=== PATIENT | female | born 1940 | race Two or more races ===

== ENCOUNTER → 2019-05-22 | Day surgery (SDC) | payer OTHER ==
[2019-05-20 10:26] LABS: Basophils # (auto) 0.1 uL; Basophils % (auto) 0.7 % (0.0-2.0); Eosinophils # (auto) 0.2 uL; Eosinophils % (auto) 2.7 % (0.0-7.0); Hemoglobin 14.9 g/dL (12.2-16.2); Lymphocytes # (auto) 2.2 uL; Lymphocytes % (auto) 24.8 % (10.0-50.0); Mean Corpuscular Hemoglobin 33.3 pg (28.0-32.0); Mean Corpuscular Hgb Conc. 33.9 g/dL (32.0-36.0); Mean Corpuscular Volume 98.4 fL (80.0-100.0); Monocytes # (auto) 0.6 uL; Monocytes % (auto) 6.6 % (0.0-12.0); Neutrophils # (auto) 5.9 uL; Neutrophils % (auto) 65.2 % (37.0-80.0); Platelet Count (auto) 157 10^3/uL (140-450); Red Blood Cells 4.47 10^6/uL (4.0-5.20); Red Cell Distribution Width 12.5 % (11.8-14.3)
[2019-05-20 10:48] LABS: INR 0.97 (0.9-1.15); Partial Thromboplastin Time 26.2 sec (23.64-32.05)
[2019-05-20 10:51] LABS: Calcium 9.8 mg/dL (8.5-10.1); Potassium 5.3 mmol/L (3.5-5.1)
[2019-05-20 10:55] LABS: BUN/Creatinine Ratio 22.2
[~2019-05-22] VITALS: Ht 167.6 cm; Wt 120.2 kg
[~2019-05-22] MED LIST: ALCA0.25 EACHEYE; AMOX500T86 PO; ASPI-404 PO; ATEN50TA PO; ATOR20TA PO; B-CO-15 PO; BUPIVACAINE HCL 50 ML ONE; COEN200C11 PO; CRAN425C2 PO; FLUT1SPR5; FURO20TA3 PO; GABA100C9 PO; GARL200T PO; HYDROmorphone HCL 2 MG/ML VL ONE; LACTCAP35 PO; LIDOCAINE 1% HCL (LOCAL ANESTH.) INJ 20ML MDV ONE; LOSA-69 PO; METHYLENE BLUE 0.5% 5MG/ML 10ml AMP IV ONE; MIDAZOLAM HCL 1MG/1ML-2 ML VIAL IV ONE; MISCTAB85 PO; MULT-902 PO; MULTTAB61 PO; NIAC500T71 PO; NOR10T PO; OMEG120017 PO; ONDANSETRON HCL 4 MG/2 ML VIAL ONE; POTA1TAB61 PO; PROPOFOL 10 MG/ML 20 ML IV ONE; ROCURONIUM 10MG/ML 10ML VIAL IV ONE; SODIUM CHLORIDE LOCK 10 ML ONE; SUCCINYLCHOLINE CHLORIDE 20 MG/ML 10ML VIAL IV ONE; TOBR0.3S EACHEYE; VITA400T4 PO; ceFAZolin 1GM/50ML 100 ML IV ONE; fentaNYL CITRATE 100 MCG/2 ML VL ONE
[2019-05-22 08:29] LABS: BUN/Creatinine Ratio 26.4; Calcium 8.9 mg/dL (8.5-10.1); Potassium 4.4 mmol/L (3.5-5.1)
[2019-05-22 16:44] VITALS: BP 152/66
== END | disposition home or self-care (01) ==
LOC: SUR 07:08
PROVIDERS: ATTEND Surgery
DX: C50.612 Malignant neoplasm of axillary tail of left female breast (principal); I12.9 Hypertensive chronic kidney disease with stage 1 through stage 4 chronic kidney disease, or unspecified chronic kidney disease; N18.3 Chronic kidney disease, stage 3 (moderate); M19.90 Unspecified osteoarthritis, unspecified site; E78.5 Hyperlipidemia, unspecified; G62.9 Polyneuropathy, unspecified; E66.01 Morbid (severe) obesity due to excess calories; J44.9 Chronic obstructive pulmonary disease, unspecified; F32.9 Major depressive disorder, single episode, unspecified; F17.210 Nicotine dependence, cigarettes, uncomplicated; Z80.8 Family history of malignant neoplasm of other organs or systems; Z68.41 Body mass index [BMI] 40.0-44.9, adult; Z98.890 Other specified postprocedural states; Z88.8 Allergy status to other drugs, medicaments and biological substances; Z91.09 Other allergy status, other than to drugs and biological substances; Z17.0 Estrogen receptor positive status [ER+]
CPT/HCPCS: 19301; 36415; 38525; 80048; 85025; 85610; 85730; 88305; 88331; 88342; 93005; J0330; J0690; J1170; J2001; J2250; J2405; J2704; J3010; J3490; J7030; J7050; Q9968; 78195

== ENCOUNTER → 2019-05-22 | Outpatient (CLI) | payer OTHER ==
[~2019-05-22] MED LIST changes: -BUPIVACAINE HCL 50 ML ONE; +HYDROmorphone HCL 2 MG/ML VL IV PRN; -HYDROmorphone HCL 2 MG/ML VL ONE; -LIDOCAINE 1% HCL (LOCAL ANESTH.) INJ 20ML MDV ONE; -METHYLENE BLUE 0.5% 5MG/ML 10ml AMP IV ONE; -MIDAZOLAM HCL 1MG/1ML-2 ML VIAL IV ONE; +MIDAZOLAM HCL 1MG/1ML-2 ML VIAL ONE; +NALOXONE HCL 0.4 MG/ML VIAL IV PRN; +ONDANSETRON HCL 4 MG/2 ML VIAL IV PRN; -ONDANSETRON HCL 4 MG/2 ML VIAL ONE; -PROPOFOL 10 MG/ML 20 ML IV ONE; -ROCURONIUM 10MG/ML 10ML VIAL IV ONE; -SODIUM CHLORIDE LOCK 10 ML ONE; -SUCCINYLCHOLINE CHLORIDE 20 MG/ML 10ML VIAL IV ONE; -ceFAZolin 1GM/50ML 100 ML IV ONE; -fentaNYL CITRATE 100 MCG/2 ML VL ONE; +hydrALAZINE HCL 20 MG/ML VL IV PRN
== END | disposition home or self-care (01) ==
LOC: XY 11:55
DX: Z12.31 Encounter for screening mammogram for malignant neoplasm of breast (principal); I10 Essential (primary) hypertension; E78.5 Hyperlipidemia, unspecified; F17.210 Nicotine dependence, cigarettes, uncomplicated; Z90.710 Acquired absence of both cervix and uterus
CPT/HCPCS: 78195; A9541; J2250

== ENCOUNTER 2022-02-28 12:36 | Inpatient (IN) | payer OTHER ==
[~2022-02-28] VITALS: Ht 162.6 cm; Wt 108.1 kg
[~2022-02-28 12:36] MED LIST changes: -ASPI-404 PO; +ASPI-543 PO; -HYDROmorphone HCL 2 MG/ML VL IV PRN; -MIDAZOLAM HCL 1MG/1ML-2 ML VIAL ONE; +MULT-1018 PO; -MULTTAB61 PO; -NALOXONE HCL 0.4 MG/ML VIAL IV PRN; -ONDANSETRON HCL 4 MG/2 ML VIAL IV PRN; -hydrALAZINE HCL 20 MG/ML VL IV PRN
[2022-02-28] MEDS ORDERED: SODIUM CHLORIDE 0.9% 1,000 ML IV ONE (13:15)
[2022-02-28 14:12] LABS: Basophils # (auto) 0.1 10 ^3/uL (0-0.2); Basophils % (auto) 0.6 % (0.0-2.0); Eosinophils # (auto) 0 10 ^3/uL (0-0.8); Eosinophils % (auto) 0.2 % (0.0-7.0); Hematocrit 36.4 % (36.0-46.0); Hemoglobin 11.9 g/dL (12.2-16.2); Lymphocytes # (auto) 0.9 10 ^3/uL (0.4-5.4); Lymphocytes % (auto) 8.9 % (10.0-50.0); Mean Corpuscular Hemoglobin 31.6 pg (28.0-32.0); Mean Corpuscular Hgb Conc. 32.5 g/dL (32.0-36.0); Monocytes # (auto) 0.7 10 ^3/uL (0-1.3); Neutrophils # (auto) 8.7 10 ^3/uL (1.6-8.6); Neutrophils % (auto) 83.3 % (37.0-80.0); Red Blood Cells 3.76 10^6/uL (4.0-5.20); Red Cell Distribution Width 13.4 % (11.8-14.3); White Blood Cell 10.5 10^3/uL (4.4-10.8)
[2022-02-28 14:28] LABS: Albumin 3.4 g/dL (3.4-5.0); Anion Gap 7 (5-15); Blood Alcohol < 3.0 mg/dL (0-5); Blood Urea Nitrogen 53 mg/dL (7-18); Calcium 9.4 mg/dL (8.5-10.1); Carbon Dioxide 22 mmol/L (21-32); Chloride 114 mmol/L (98-107); Glucose 120 mg/dL (74-106); Potassium 4.8 mmol/L (3.5-5.1); Sodium 143 mmol/L (136-145)
[2022-02-28 14:32] LABS: Alanine Aminotransferase 21 U/L (13-56); Alkaline Phosphatase 77 U/L (45-117); Aspartate Aminotransferase 21 U/L (15-37); BUN/Creatinine Ratio 24.1; Bilirubin, Total 1.3 mg/dL (0.2-1.0); GFR African American 28 mL/min; GFR Non-African American 23 mL/min; Total Protein 6.5 g/dL (6.4-8.2)
[2022-02-28 16:19] LABS: Alcohol, Urine < 3.0 mg/dL (0-10); Amphetamine Screen, Urine NEGATIVE (NEGATIVE); Barbiturate Scree,Urine NEGATIVE (NEGATIVE); Benzodiazephine Screen, Urine NEGATIVE (NEGATIVE); Cannabinoid Screen, Urine NEGATIVE (NEGATIVE); Cocaine Screen, Urine NEGATIVE (NEGATIVE); Opiate Scree,Urine POSITIVE (NEGATIVE); Phencyclidine Screen, Urine NEGATIVE (NEGATIVE)
[2022-02-28 16:21] LABS: Urine Bacteria MOD /hpf (None Seen); Urine Blood Negative /uL (Negative); Urine Hyaline Cast FEW /lpf (0 - 2); Urine Specific Gravity 1.015 (1.001-1.035); Urine WBC 68 /hpf (0 - 5); Urine WBC Clumps PRESENT /hpf (None Seen)
[2022-02-28] MEDS ORDERED: cefTRIAXone 1GM/50ML D5W 50 ML IV ONE (17:15)
[2022-02-28] MEDS ORDERED: ONDANSETRON HCL 4 MG/2 ML VIAL IV PRN (19:00)
[2022-02-28] MEDS ORDERED: DOCUSATE SOD 100 MG CAP PO PRN (19:00)
[2022-02-28] MEDS ORDERED: ACETAMINOPHEN 325 MG TAB PO PRN (19:00)
[2022-02-28] MEDS ORDERED: MORPHINE SULFATE INJ 2 MG/ml SYRG IV PRN (19:00)
[2022-02-28] MEDS ORDERED: HYDROcodone-ACET 5/325MG TAB PO PRN (19:00)
[2022-02-28] MEDS ORDERED: FUROSEMIDE 100 MG/10ML VIAL IV ONE (19:30)
[2022-02-28] MEDS: SODIUM CHLORIDE 0.9% 1,000 ML IV SCH (20:41)
[2022-03-01] VITALS (7 sets, daily range): BP systolic 107–149; BP diastolic 40–54
[2022-03-01 05:47] LABS: Alanine Aminotransferase 15 U/L (13-56); Albumin 2.6 g/dL (3.4-5.0); Anion Gap 8 (5-15); Blood Urea Nitrogen 45 mg/dL (7-18); Calcium 8.5 mg/dL (8.5-10.1); Carbon Dioxide 21 mmol/L (21-32); Chloride 117 mmol/L (98-107); GFR African American 37 mL/min; GFR Non-African American 30 mL/min; Glucose 98 mg/dL (74-106); Potassium 4.6 mmol/L (3.5-5.1); Sodium 146 mmol/L (136-145)
[2022-03-01 05:50] LABS: Alkaline Phosphatase 59 U/L (45-117); Aspartate Aminotransferase 23 U/L (15-37); Bilirubin, Total 1.1 mg/dL (0.2-1.0); Total Protein 5.4 g/dL (6.4-8.2)
[2022-03-01 06:00] LABS: Basophils # (auto) 0 10 ^3/uL (0-0.2); Basophils % (auto) 0.5 % (0.0-2.0); Eosinophils # (auto) 0.2 10 ^3/uL (0-0.8); Eosinophils % (auto) 2.4 % (0.0-7.0); Hematocrit 35.6 % (36.0-46.0); Lymphocytes # (auto) 2.3 10 ^3/uL (0.4-5.4); Lymphocytes % (auto) 26.3 % (10.0-50.0); Mean Corpuscular Hemoglobin 31.7 pg (28.0-32.0); Mean Corpuscular Hgb Conc. 30.7 g/dL (32.0-36.0); Mean Corpuscular Volume 103.2 fL (80.0-100.0); Monocytes % (auto) 11.6 % (0.0-12.0); Neutrophils # (auto) 5.3 10 ^3/uL (1.6-8.6); Neutrophils % (auto) 59.2 % (37.0-80.0); Red Blood Cells 3.45 10^6/uL (4.0-5.20); Red Cell Distribution Width 14.4 % (11.8-14.3); White Blood Cell 8.9 10^3/uL (4.4-10.8)
[2022-03-01] MEDS: ENOXAPARIN SOD 30 MG/0.3 ML SYRINGE SC SCH (10:50)
[2022-03-01] MEDS: SODIUM CHLORIDE 0.9% 1,000 ML IV SCH (16:24)
[2022-03-02] MEDS: SODIUM CHLORIDE 0.9% 1,000 ML IV SCH ×2 (04:20→21:00)
[2022-03-02 05:00] VITALS: BP 140/62
[2022-03-02 06:16] LABS: Basophils # (auto) 0 10 ^3/uL (0-0.2); Basophils % (auto) 0.6 % (0.0-2.0); Eosinophils # (auto) 0.3 10 ^3/uL (0-0.8); Eosinophils % (auto) 3.9 % (0.0-7.0); Hematocrit 30.9 % (36.0-46.0); Hemoglobin 10.2 g/dL (12.2-16.2); Lymphocytes # (auto) 1.5 10 ^3/uL (0.4-5.4); Lymphocytes % (auto) 20.7 % (10.0-50.0); Mean Corpuscular Hemoglobin 32.6 pg (28.0-32.0); Mean Corpuscular Hgb Conc. 33.1 g/dL (32.0-36.0); Mean Corpuscular Volume 98.6 fL (80.0-100.0); Monocytes # (auto) 0.6 10 ^3/uL (0-1.3); Neutrophils # (auto) 4.6 10 ^3/uL (1.6-8.6); Neutrophils % (auto) 65.8 % (37.0-80.0); Red Blood Cells 3.13 10^6/uL (4.0-5.20); Red Cell Distribution Width 13.5 % (11.8-14.3)
[2022-03-02 06:33] LABS: Anion Gap 6 (5-15); BUN/Creatinine Ratio 23.8; Blood Urea Nitrogen 29 mg/dL (7-18); Calcium 8.4 mg/dL (8.5-10.1); Carbon Dioxide 20 mmol/L (21-32); Chloride 119 mmol/L (98-107); GFR African American 55 mL/min; GFR Non-African American 45 mL/min; Glucose 88 mg/dL (74-106); Magnesium 2.2 mg/dL (1.6-2.6); Potassium 4.1 mmol/L (3.5-5.1); Sodium 145 mmol/L (136-145)
[2022-03-02 09:00] VITALS: BP 154/71
[2022-03-02] MEDS: ENOXAPARIN SOD 30 MG/0.3 ML SYRINGE SC SCH (10:00)
[2022-03-02] MEDS ORDERED: CEFTRIAXONE SODIUM 2 GM in D5W 5% 50 ML IV ONE (11:00)
[2022-03-02 13:00] VITALS: BP 155/62
[2022-03-02 17:00] VITALS: BP 162/56
[2022-03-02 20:20] VITALS: BP 155/72
[2022-03-02 22:00] VITALS: BP 155/72
[2022-03-03 05:00] VITALS: BP 153/53
[2022-03-03 08:00] VITALS: BP 155/71
[2022-03-03 09:00] VITALS: BP 155/71
[2022-03-03] MEDS ORDERED: cefTRIAXone 1GM/50ML D5W 50 ML IV SCH (09:00)
[2022-03-03] MEDS: ENOXAPARIN SOD 30 MG/0.3 ML SYRINGE SC SCH (09:22)
[2022-03-03 09:31] LABS: Basophils # (auto) 0 10 ^3/uL (0-0.2); Basophils % (auto) 0.6 % (0.0-2.0); Eosinophils # (auto) 0.2 10 ^3/uL (0-0.8); Eosinophils % (auto) 3.3 % (0.0-7.0); Hematocrit 34.1 % (36.0-46.0); Lymphocytes # (auto) 1.1 10 ^3/uL (0.4-5.4); Lymphocytes % (auto) 17.2 % (10.0-50.0); Mean Corpuscular Hemoglobin 31.2 pg (28.0-32.0); Mean Corpuscular Hgb Conc. 32.1 g/dL (32.0-36.0); Monocytes # (auto) 0.5 10 ^3/uL (0-1.3); Monocytes % (auto) 7.3 % (0.0-12.0); Neutrophils # (auto) 4.7 10 ^3/uL (1.6-8.6); Neutrophils % (auto) 71.6 % (37.0-80.0); Red Blood Cells 3.52 10^6/uL (4.0-5.20); Red Cell Distribution Width 13.2 % (11.8-14.3); White Blood Cell 6.5 10^3/uL (4.4-10.8)
[2022-03-03 09:41] LABS: Albumin 2.6 g/dL (3.4-5.0); Calcium 8.6 mg/dL (8.5-10.1); Potassium 4.2 mmol/L (3.5-5.1)
[2022-03-03 09:44] LABS: BUN/Creatinine Ratio 15.6; Bilirubin, Total 0.8 mg/dL (0.2-1.0); Total Protein 5.4 g/dL (6.4-8.2)
[2022-03-03] MEDS ORDERED: FUROSEMIDE 40 MG/4 ML VIAL IV ONE (11:00)
[2022-03-03 13:00] VITALS: BP_SYST 123; BP_SYST 134; BP_DIAS 40; BP_DIAS 53
[2022-03-03] MEDS: SODIUM CHLORIDE 0.9% 1,000 ML IV SCH (13:16)
[2022-03-03] MEDS ORDERED: CEPH-510 PO (13:22)
[2022-03-03 14:23] VITALS: BP 134/53
[2022-03-03 16:56] VITALS: BP 141/62
== END 2022-03-03 16:56 | disposition home health service (06) | DRG 871 ==
LOC: ER 12:36 → EDBD 12:36 → OVERFLOW 18:57 → EAST 23:45
PROVIDERS: ADMIT Internal Medicine; ATTEND Internal Medicine
DX: A41.9 Sepsis, unspecified organism (principal); G93.41 Metabolic encephalopathy; N17.0 Acute kidney failure with tubular necrosis; N39.0 Urinary tract infection, site not specified; R55 Syncope and collapse; I12.9 Hypertensive chronic kidney disease with stage 1 through stage 4 chronic kidney disease, or unspecified chronic kidney disease; Z20.822 Contact with and (suspected) exposure to COVID-19; N18.9 Chronic kidney disease, unspecified; Z88.8 Allergy status to other drugs, medicaments and biological substances; Z79.899 Other long term (current) drug therapy
CPT/HCPCS: 36415; 51702; 70450; 70551; 71045; 80048; 80053; 80307; 80320; 81001; 83605; 83735; 83880; 84484; 85025; 87040; 87081; 87086; 93005; 96361; 96365; 97110; 97116; 97163; 97530; G0378; J0696; J2405; J7060

== ENCOUNTER 2022-11-20 18:31 | Inpatient (IN) | payer OTHER ==
[~2022-11-20] VITALS: Ht 167.6 cm; Wt 103.9 kg
[~2022-11-20 18:31] MED LIST changes: -ALCA0.25 EACHEYE; -ASPI-543 PO; -B-CO-15 PO; +B-COTAB19 PO; +CEPH-510 PO; +GABA-1308 PO; -GABA100C9 PO; -LACTCAP35 PO; -LOSA-69 PO; +LOSA50TA46 PO; -MULT-1018 PO; +[UNRECOGNIZED DRUG - CODE] EACHEYE
[2022-11-20 20:32] LABS: Hematocrit 39.9 % (36.0-46.0); Hemoglobin 13.2 g/dL (12.2-16.2); Mean Corpuscular Hemoglobin 31.9 pg (28.0-32.0); Mean Corpuscular Hgb Conc. 33.1 g/dL (32.0-36.0); Mean Corpuscular Volume 96.3 fL (80.0-100.0); Red Blood Cells 4.14 10^6/uL (4.0-5.20); Red Cell Distribution Width 12.7 % (11.8-14.3)
[2022-11-20 20:35] LABS: Basophils % (manual) 0 (0.0-2.0); Blast Cells 0; Eosinophils % (manual) 0 (0-7); Metamyelocytes % 0; Myelocytes % 0; Promyelocytes % 0; Reactive Lymphocytes 0
[2022-11-20 20:55] LABS: Band Neutrophils % (manual) 1; Lymphocytes % (manual) 10 (10.0-50.0); Monocytes % (manual) 8 (0-12)
[2022-11-20 21:09] LABS: Lactic Acid w/Reflex 2.4 mmol/L (0.4-2.0)
[2022-11-20 21:44] LABS: Calcium 9.5 mg/dL (8.5-10.1); Potassium 4.5 mmol/L (3.5-5.1)
[2022-11-20 21:47] LABS: BUN/Creatinine Ratio 28.4 (10.0-20.0); Bilirubin, Total 1.5 mg/dL (0.2-1.0)
[2022-11-20 22:13] LABS: Urine Amorphous Crystal FEW /hpf (None Seen); Urine Bacteria NONE SEEN /hpf (None Seen); Urine Blood 1+ /uL (Negative); Urine Mucus FEW (None Seen); Urine Specific Gravity 1.015 (1.001-1.035); Urine WBC 16 /hpf (0 - 5)
[2022-11-20 22:31] LABS: Alcohol, Urine < 3.0 mg/dL (0-10); Amphetamine Screen, Urine NEGATIVE (NEGATIVE); Barbiturate Scree,Urine NEGATIVE (NEGATIVE); Benzodiazephine Screen, Urine NEGATIVE (NEGATIVE); Cannabinoid Screen, Urine NEGATIVE (NEGATIVE); Cocaine Screen, Urine NEGATIVE (NEGATIVE); Opiate Scree,Urine POSITIVE (NEGATIVE); Phencyclidine Screen, Urine NEGATIVE (NEGATIVE)
[2022-11-21] VITALS: BP 122/78
[2022-11-21] MEDS ORDERED: cefTRIAXone 1GM/50ML D5W 50 ML IV ONE (04:00)
[2022-11-21] MEDS ORDERED: ACETAMINOPHEN 325 MG TAB PO PRN (07:15)
[2022-11-21] MEDS ORDERED: ONDANSETRON HCL 4 MG/2 ML VIAL IV PRN (07:15)
[2022-11-21] MEDS ORDERED: LOSARTAN POTASSIUM 50 MG TAB PO SCH (10:00)
[2022-11-21] MEDS: PANTOPRAZOLE 40 MG TAB PO SCH (10:52)
[2022-11-21] MEDS: ATENOLOL 50 MG TAB PO SCH (10:52)
[2022-11-21] MEDS: ASPirin 81 mg TAB PO SCH (10:53)
[2022-11-21] MEDS: cefTRIAXone 1GM/50ML D5W 50 ML IV SCH (10:55)
[2022-11-21] MEDS: FUROSEMIDE 20 MG TAB PO SCH (10:55)
[2022-11-21] MEDS: SOD CHL 0.45% 1,000 ML IV SCH (14:55)
[2022-11-21] MEDS: ATORVASTATIN 20 MG TAB PO SCH (22:31)
[2022-11-22] MEDS: SOD CHL 0.45% 1,000 ML IV SCH (01:35)
[2022-11-22 05:00] VITALS: BP 132/55
[2022-11-22 06:55] LABS: Basophils # (auto) 0.1 10 ^3/uL (0-0.2); Basophils % (auto) 0.6 % (0.0-2.0); Eosinophils # (auto) 0.3 10 ^3/uL (0-0.8); Eosinophils % (auto) 3.1 % (0.0-7.0); Hematocrit 33.2 % (36.0-46.0); Hemoglobin 11.3 g/dL (12.2-16.2); Lymphocytes # (auto) 1.7 10 ^3/uL (0.4-5.4); Lymphocytes % (auto) 17.8 % (10.0-50.0); Mean Corpuscular Hemoglobin 32.9 pg (28.0-32.0); Mean Corpuscular Hgb Conc. 34.2 g/dL (32.0-36.0); Mean Corpuscular Volume 96.3 fL (80.0-100.0); Monocytes % (auto) 11.2 % (0.0-12.0); Neutrophils # (auto) 6.3 10 ^3/uL (1.6-8.6); Neutrophils % (auto) 67.3 % (37.0-80.0); Nucleated Red Blood Cells % 0.1 %; Red Blood Cells 3.45 10^6/uL (4.0-5.20); Red Cell Distribution Width 12.4 % (11.8-14.3); White Blood Cell 9.3 10^3/uL (4.4-10.8)
[2022-11-22 07:12] LABS: Albumin 2.5 g/dL (3.4-5.0); Calcium 8.9 mg/dL (8.5-10.1)
[2022-11-22 07:14] LABS: BUN/Creatinine Ratio 30.8 (10.0-20.0)
[2022-11-22 07:16] LABS: Total Protein 5.3 g/dL (6.4-8.2)
[2022-11-22] MEDS: cefTRIAXone 1GM/50ML D5W 50 ML IV SCH (08:10)
[2022-11-22 09:00] VITALS: BP 115/30
[2022-11-22] MEDS: ASPirin 81 mg TAB PO SCH (11:11)
[2022-11-22] MEDS: PANTOPRAZOLE 40 MG TAB PO SCH (11:11)
[2022-11-22] MEDS: ATENOLOL 50 MG TAB PO SCH (11:12)
[2022-11-22] MEDS: FUROSEMIDE 20 MG TAB PO SCH (11:13)
[2022-11-22 12:45] VITALS: BP 138/57
[2022-11-22] MEDS ORDERED: SOD CHL 0.45% 1,000 ML IV SCH (13:30)
[2022-11-22 17:00] VITALS: BP 150/76
[2022-11-22 22:00] VITALS: BP 124/51
[2022-11-22] MEDS: ATORVASTATIN 20 MG TAB PO SCH (23:51)
[2022-11-22] MEDS: SODIUM BICARBONATE 50ML VIAL 50 ML in SOD CHL 0.45% 1,000 ML IV SCH (23:52)
[2022-11-23 05:00] VITALS: BP 150/60
[2022-11-23 05:52] LABS: BUN/Creatinine Ratio 28.2 (10.0-20.0); Calcium 8.5 mg/dL (8.5-10.1); Potassium 3.6 mmol/L (3.5-5.1)
[2022-11-23 09:00] VITALS: BP 135/53
[2022-11-23] MEDS: cefTRIAXone 1GM/50ML D5W 50 ML IV SCH (09:43)
[2022-11-23] MEDS: ASPirin 81 mg TAB PO SCH (09:43)
[2022-11-23] MEDS: PANTOPRAZOLE 40 MG TAB PO SCH (09:44)
[2022-11-23] MEDS: SODIUM BICARBONATE 50ML VIAL 50 ML in SOD CHL 0.45% 1,000 ML IV SCH (09:48)
[2022-11-23] MEDS: FUROSEMIDE 20 MG TAB PO SCH (10:01)
[2022-11-23] MEDS: ATENOLOL 50 MG TAB PO SCH (10:01)
[2022-11-23] MEDS ORDERED: CIPR-173 PO (12:43)
[2022-11-23 12:46] VITALS: BP 131/53
== END 2022-11-23 16:30 | disposition home or self-care (01) | DRG 690 ==
LOC: EDBD 18:31 → ER 18:35 → OVERFLOW 11-21 07:16 → WEST WING 11-21 23:17
PROVIDERS: ADMIT Nurse Practitioner; ATTEND Hospitalist
DX: N39.0 Urinary tract infection, site not specified (principal); E44.0 Moderate protein-calorie malnutrition; E87.20 Acidosis, unspecified; N17.9 Acute kidney failure, unspecified; E66.01 Morbid (severe) obesity due to excess calories; I12.9 Hypertensive chronic kidney disease with stage 1 through stage 4 chronic kidney disease, or unspecified chronic kidney disease; D63.1 Anemia in chronic kidney disease; N18.30 Chronic kidney disease, stage 3 unspecified; N20.0 Calculus of kidney; E78.5 Hyperlipidemia, unspecified; Z68.37 Body mass index [BMI] 37.0-37.9, adult; Z88.8 Allergy status to other drugs, medicaments and biological substances; R55 Syncope and collapse
CPT/HCPCS: 36415; 70450; 71045; 71250; 72125; 73100; 74176; 76775; 78582; 80048; 80053; 80307; 81001; 83605; 83880; 83970; 84100; 84484; 85007; 85025; 85027; 85379; 87086; 87088; 87186; 87493; 93005; 93306; 93970; 96365; 97110; 97116; 97163; 97530; G0378; J0696

== ENCOUNTER 2022-12-14 01:44 | Inpatient (IN) | payer OTHER ==
[~2022-12-14] VITALS: Ht 162.6 cm; Wt 97.0 kg
[~2022-12-14 01:44] MED LIST changes: -AMOX500T86 PO; -CEPH-510 PO; +CIPR-173 PO; -COEN200C11 PO; -CRAN425C2 PO; -GARL200T PO; -NIAC500T71 PO; -VITA400T4 PO
[2022-12-14 02:56] LABS: Basophils # (auto) 0 10 ^3/uL (0-0.2); Basophils % (auto) 0.6 % (0.0-2.0); Eosinophils # (auto) 0.1 10 ^3/uL (0-0.8); Hematocrit 32.6 % (36.0-46.0); Hemoglobin 10.7 g/dL (12.2-16.2); Lymphocytes # (auto) 1.2 10 ^3/uL (0.4-5.4); Lymphocytes % (auto) 15.1 % (10.0-50.0); Mean Corpuscular Hemoglobin 32.4 pg (28.0-32.0); Mean Corpuscular Hgb Conc. 32.8 g/dL (32.0-36.0); Mean Corpuscular Volume 98.8 fL (80.0-100.0); Monocytes # (auto) 0.6 10 ^3/uL (0-1.3); Monocytes % (auto) 7.3 % (0.0-12.0); Neutrophils # (auto) 6.2 10 ^3/uL (1.6-8.6); Nucleated Red Blood Cells % 0.1 %; Red Cell Distribution Width 13.4 % (11.8-14.3); White Blood Cell 8.2 10^3/uL (4.4-10.8)
[2022-12-14 03:03] LABS: Albumin 2.7 g/dL (3.4-5.0); Calcium 8.8 mg/dL (8.5-10.1)
[2022-12-14 03:06] LABS: BUN/Creatinine Ratio 18.1 (10.0-20.0); Bilirubin, Total 0.6 mg/dL (0.2-1.0); Total Protein 6.2 g/dL (6.4-8.2)
[2022-12-14 03:30] LABS: INR 1.03 (0.9-1.15); Partial Thromboplastin Time 27.7 sec (24.6-33.4)
[2022-12-14] MEDS ORDERED: FUROSEMIDE 20 MG/2 ML VIAL IV ONE (05:45)
[2022-12-14] MEDS ORDERED: DOCUSATE SOD 100 MG CAP PO PRN (05:45)
[2022-12-14] MEDS ORDERED: MORPHINE SULFATE INJ 2 MG/ml SYRG IV PRN (05:45)
[2022-12-14] MEDS ORDERED: NITROGLYCERIN 0.4 MG SL TAB SL PRN (05:45)
[2022-12-14] MEDS ORDERED: ACETAMINOPHEN 325 MG TAB PO PRN (05:45)
[2022-12-14] MEDS: SODIUM CHLOR 0.9% PF (SALINE LOCK) 10ML VIAL/SYR IV SCH ×3 (06:33→22:11)
[2022-12-14 07:20] LABS: Basophils # (auto) 0.1 10 ^3/uL (0-0.2); Basophils % (auto) 1.1 % (0.0-2.0); Eosinophils # (auto) 0.1 10 ^3/uL (0-0.8); Eosinophils % (auto) 1.6 % (0.0-7.0); Hematocrit 32.2 % (36.0-46.0); Hemoglobin 10.5 g/dL (12.2-16.2); Lymphocytes # (auto) 1.6 10 ^3/uL (0.4-5.4); Lymphocytes % (auto) 20.4 % (10.0-50.0); Mean Corpuscular Hemoglobin 32.7 pg (28.0-32.0); Mean Corpuscular Hgb Conc. 32.6 g/dL (32.0-36.0); Mean Corpuscular Volume 100.2 fL (80.0-100.0); Monocytes # (auto) 0.7 10 ^3/uL (0-1.3); Monocytes % (auto) 9.4 % (0.0-12.0); Neutrophils # (auto) 5.2 10 ^3/uL (1.6-8.6); Neutrophils % (auto) 67.5 % (37.0-80.0); Red Blood Cells 3.21 10^6/uL (4.0-5.20); Red Cell Distribution Width 13.8 % (11.8-14.3); White Blood Cell 7.7 10^3/uL (4.4-10.8)
[2022-12-14 07:27] LABS: Albumin 2.4 g/dL (3.4-5.0); BUN/Creatinine Ratio 19.5 (10.0-20.0); Calcium 8.6 mg/dL (8.5-10.1); Potassium 5.4 mmol/L (3.5-5.1)
[2022-12-14 07:30] LABS: Bilirubin, Total 0.6 mg/dL (0.2-1.0); Total Protein 5.9 g/dL (6.4-8.2)
[2022-12-14] MEDS: SOD CHL 0.45% 1,000 ML IV SCH (09:20)
[2022-12-14] MEDS: FUROSEMIDE 20 MG/2 ML VIAL IV SCH (10:56)
[2022-12-14 14:32] LABS: Urine Bacteria FEW /hpf (None Seen); Urine Blood Negative /uL (Negative); Urine Specific Gravity 1.013 (1.001-1.035); Urine WBC <1 /hpf (0 - 5)
[2022-12-14 14:45] LABS: Protein, Urine 21.1 mg/dL (0.0-11.9)
[2022-12-14] MEDS: SODIUM ZIRCONIUM CYCL 10 GM PAK PO SCH (15:02)
[2022-12-14] MEDS: APIXABAN 2.5 MG TAB PO SCH (22:11)
[2022-12-15] VITALS (7 sets, daily range): BP systolic 105–146; BP diastolic 40–67
[2022-12-15] MEDS: SOD CHL 0.45% 1,000 ML IV SCH ×3 (00:17→13:27)
[2022-12-15 05:42] LABS: Albumin 2.5 g/dL (3.4-5.0); Calcium 8.1 mg/dL (8.5-10.1); Potassium 4.2 mmol/L (3.5-5.1)
[2022-12-15 05:45] LABS: BUN/Creatinine Ratio 18.8 (10.0-20.0); Bilirubin, Total 0.6 mg/dL (0.2-1.0); Phosphorus 3.3 mg/dL (2.5-4.90); Total Protein 5.6 g/dL (6.4-8.2)
[2022-12-15 06:10] LABS: Basophils # (auto) 0 10 ^3/uL (0-0.2); Basophils % (auto) 0.4 % (0.0-2.0); Eosinophils # (auto) 0.2 10 ^3/uL (0-0.8); Eosinophils % (auto) 2.8 % (0.0-7.0); Hemoglobin 10.4 g/dL (12.2-16.2); Lymphocytes # (auto) 1.7 10 ^3/uL (0.4-5.4); Lymphocytes % (auto) 22.6 % (10.0-50.0); Mean Corpuscular Hemoglobin 32.8 pg (28.0-32.0); Mean Corpuscular Hgb Conc. 33.4 g/dL (32.0-36.0); Mean Corpuscular Volume 98.3 fL (80.0-100.0); Monocytes # (auto) 0.6 10 ^3/uL (0-1.3); Monocytes % (auto) 8.6 % (0.0-12.0); Neutrophils # (auto) 4.9 10 ^3/uL (1.6-8.6); Neutrophils % (auto) 65.6 % (37.0-80.0); Red Blood Cells 3.16 10^6/uL (4.0-5.20); Red Cell Distribution Width 13.7 % (11.8-14.3); White Blood Cell 7.4 10^3/uL (4.4-10.8)
[2022-12-15] MEDS: SODIUM CHLOR 0.9% PF (SALINE LOCK) 10ML VIAL/SYR IV SCH ×3 (06:26→20:39)
[2022-12-15] MEDS: FUROSEMIDE 20 MG/2 ML VIAL IV SCH (09:19)
[2022-12-15] MEDS: SODIUM ZIRCONIUM CYCL 10 GM PAK PO SCH (09:22)
[2022-12-15] MEDS: APIXABAN 2.5 MG TAB PO SCH ×2 (09:23→20:38)
[2022-12-16] VITALS (7 sets, daily range): BP systolic 120–142; BP diastolic 46–65
[2022-12-16] MEDS: SOD CHL 0.45% 1,000 ML IV SCH ×2 (00:30→11:39)
[2022-12-16] MEDS: HYDROcodone-ACET 5/325MG TAB PO PRN (02:10)
[2022-12-16] MEDS: ONDANSETRON HCL 4 MG/2 ML VIAL IV PRN ×2 (05:13→15:26)
[2022-12-16] MEDS: SODIUM CHLOR 0.9% PF (SALINE LOCK) 10ML VIAL/SYR IV SCH ×3 (05:14→21:17)
[2022-12-16 06:29] LABS: Anion Gap 4 (5-15); BUN/Creatinine Ratio 17.7 (10.0-20.0); Blood Urea Nitrogen 26 mg/dL (7-18); Carbon Dioxide 17 mmol/L (21-32); Chloride 122 mmol/L (98-107); GFR African American 44 mL/min; GFR Non-African American 36 mL/min; Glucose 82 mg/dL (74-106); Potassium 5.2 mmol/L (3.5-5.1); Sodium 143 mmol/L (136-145)
[2022-12-16 07:11] LABS: Basophils # (auto) 0 10 ^3/uL (0-0.2); Basophils % (auto) 0.6 % (0.0-2.0); Eosinophils # (auto) 0.2 10 ^3/uL (0-0.8); Eosinophils % (auto) 2.6 % (0.0-7.0); Hematocrit 28.9 % (36.0-46.0); Hemoglobin 9.7 g/dL (12.2-16.2); Lymphocytes # (auto) 1.7 10 ^3/uL (0.4-5.4); Lymphocytes % (auto) 23.8 % (10.0-50.0); Mean Corpuscular Hemoglobin 33.9 pg (28.0-32.0); Mean Corpuscular Hgb Conc. 33.7 g/dL (32.0-36.0); Mean Corpuscular Volume 100.6 fL (80.0-100.0); Monocytes # (auto) 0.7 10 ^3/uL (0-1.3); Monocytes % (auto) 9.6 % (0.0-12.0); Neutrophils # (auto) 4.4 10 ^3/uL (1.6-8.6); Neutrophils % (auto) 63.4 % (37.0-80.0); Nucleated Red Blood Cells % 0.2 %; Red Blood Cells 2.88 10^6/uL (4.0-5.20)
[2022-12-16] MEDS: FUROSEMIDE 20 MG/2 ML VIAL IV SCH (09:22)
[2022-12-16] MEDS: APIXABAN 2.5 MG TAB PO SCH ×2 (09:23→21:17)
[2022-12-16] MEDS: SODIUM ZIRCONIUM CYCL 10 GM PAK PO SCH (09:23)
[2022-12-17] VITALS (7 sets, daily range): BP systolic 128–156; BP diastolic 53–88
[2022-12-17] MEDS: ONDANSETRON HCL 4 MG/2 ML VIAL IV PRN ×2 (00:23→21:25)
[2022-12-17] MEDS: SODIUM CHLOR 0.9% PF (SALINE LOCK) 10ML VIAL/SYR IV SCH ×3 (06:06→21:25)
[2022-12-17 06:31] LABS: Calcium 7.9 mg/dL (8.5-10.1)
[2022-12-17 06:34] LABS: BUN/Creatinine Ratio 13.9 (10.0-20.0)
[2022-12-17 06:39] LABS: Potassium 4.7 mmol/L (3.5-5.1)
[2022-12-17] MEDS: FUROSEMIDE 20 MG/2 ML VIAL IV SCH (10:05)
[2022-12-17] MEDS: SODIUM ZIRCONIUM CYCL 10 GM PAK PO SCH (10:05)
[2022-12-17] MEDS: APIXABAN 2.5 MG TAB PO SCH ×2 (10:05→21:25)
[2022-12-17] MEDS ORDERED: APIX2.5T PO (13:48)
[2022-12-17] MEDS: hydrALAZINE HCL 20 MG/ML VL IV PRN ×2 (17:56→23:08)
[2022-12-17] MEDS: HYDROcodone-ACET 5/325MG TAB PO PRN (23:01)
[2022-12-18] VITALS (7 sets, daily range): BP systolic 118–166; BP diastolic 49–65
[2022-12-18] MEDS: SODIUM CHLOR 0.9% PF (SALINE LOCK) 10ML VIAL/SYR IV SCH ×3 (06:21→21:15)
[2022-12-18] MEDS: APIXABAN 2.5 MG TAB PO SCH ×2 (08:52→21:16)
[2022-12-18] MEDS: HYDROcodone-ACET 5/325MG TAB PO PRN (08:52)
[2022-12-18] MEDS: FUROSEMIDE 20 MG/2 ML VIAL IV SCH (08:53)
[2022-12-18] MEDS: ONDANSETRON HCL 4 MG/2 ML VIAL IV PRN ×2 (08:53→21:15)
[2022-12-18] MEDS: ATENOLOL 25 MG TAB PO SCH (08:53)
[2022-12-18 15:29] LABS: BUN/Creatinine Ratio 11.6 (10.0-20.0); Calcium 8.5 mg/dL (8.5-10.1); Potassium 5.2 mmol/L (3.5-5.1)
[2022-12-19] VITALS (7 sets, daily range): BP systolic 136–153; BP diastolic 48–75
[2022-12-19] MEDS: HYDROcodone-ACET 5/325MG TAB PO PRN ×2 (00:53→21:06)
[2022-12-19] MEDS: hydrALAZINE HCL 20 MG/ML VL IV PRN (04:18)
[2022-12-19] MEDS: SODIUM CHLOR 0.9% PF (SALINE LOCK) 10ML VIAL/SYR IV SCH ×3 (05:06→21:06)
[2022-12-19 05:52] LABS: Calcium 8.4 mg/dL (8.5-10.1); Potassium 4.1 mmol/L (3.5-5.1)
[2022-12-19 06:26] LABS: BUN/Creatinine Ratio 13.3 (10.0-20.0)
[2022-12-19] MEDS: APIXABAN 2.5 MG TAB PO SCH ×2 (09:37→21:06)
[2022-12-19] MEDS: ATENOLOL 25 MG TAB PO SCH (09:37)
[2022-12-19] MEDS: FUROSEMIDE 20 MG/2 ML VIAL IV SCH (09:38)
[2022-12-19] MEDS: ONDANSETRON HCL 4 MG/2 ML VIAL IV PRN (16:52)
[2022-12-19] MEDS: FUROSEMIDE 20 MG TAB PO SCH (17:53)
[2022-12-20 05:00] VITALS: BP 125/56
[2022-12-20] MEDS: FUROSEMIDE 20 MG TAB PO SCH ×2 (05:25→17:25)
[2022-12-20] MEDS: SODIUM CHLOR 0.9% PF (SALINE LOCK) 10ML VIAL/SYR IV SCH ×3 (05:26→21:23)
[2022-12-20 06:13] LABS: Calcium 8.2 mg/dL (8.5-10.1); Potassium 4.2 mmol/L (3.5-5.1)
[2022-12-20 06:15] LABS: BUN/Creatinine Ratio 13.5 (10.0-20.0)
[2022-12-20 09:00] VITALS: BP 148/58
[2022-12-20] MEDS: APIXABAN 2.5 MG TAB PO SCH ×2 (10:59→21:22)
[2022-12-20 13:00] VITALS: BP 143/46
[2022-12-20 16:52] VITALS: BP 137/45
[2022-12-20] MEDS: Ensure HIGH Protein Chocolate 8oz Bottle PO SCH (18:00)
[2022-12-20] MEDS: HYDROcodone-ACET 5/325MG TAB PO PRN (21:22)
[2022-12-20] MEDS: hydrALAZINE HCL 20 MG/ML VL IV PRN (21:23)
[2022-12-20 21:30] VITALS: BP 168/51
[2022-12-21 05:20] VITALS: BP 130/68
[2022-12-21] MEDS: SODIUM CHLOR 0.9% PF (SALINE LOCK) 10ML VIAL/SYR IV SCH ×3 (05:40→22:06)
[2022-12-21] MEDS: FUROSEMIDE 20 MG TAB PO SCH ×2 (05:40→17:29)
[2022-12-21] MEDS: ATENOLOL 25 MG TAB PO SCH (08:13)
[2022-12-21] MEDS: Ensure HIGH Protein Chocolate 8oz Bottle PO SCH ×3 (08:14→17:55)
[2022-12-21 09:00] VITALS: BP 148/75
[2022-12-21] MEDS: APIXABAN 2.5 MG TAB PO SCH ×2 (09:04→22:01)
[2022-12-21 13:00] VITALS: BP 142/79
[2022-12-21 17:00] VITALS: BP 157/50
[2022-12-21] MEDS: ONDANSETRON HCL 4 MG/2 ML VIAL IV PRN ×2 (17:03→22:06)
[2022-12-21] MEDS: hydrALAZINE HCL 20 MG/ML VL IV PRN (17:29)
[2022-12-21] MEDS: HYDROcodone-ACET 5/325MG TAB PO PRN (22:06)
[2022-12-22 05:00] VITALS: BP 153/54
[2022-12-22] MEDS: SODIUM CHLOR 0.9% PF (SALINE LOCK) 10ML VIAL/SYR IV SCH ×3 (06:00→21:18)
[2022-12-22] MEDS: FUROSEMIDE 20 MG TAB PO SCH ×2 (06:40→18:08)
[2022-12-22] MEDS: ATENOLOL 25 MG TAB PO SCH (08:20)
[2022-12-22] MEDS: Ensure HIGH Protein Chocolate 8oz Bottle PO SCH ×3 (08:21→18:08)
[2022-12-22 09:00] VITALS: BP 146/66
[2022-12-22] MEDS: APIXABAN 2.5 MG TAB PO SCH ×2 (09:47→21:19)
[2022-12-22 13:00] VITALS: BP 141/57
[2022-12-22 17:00] VITALS: BP 159/60
[2022-12-22] MEDS: hydrALAZINE HCL 20 MG/ML VL IV PRN (17:06)
[2022-12-22 20:00] VITALS: BP 144/62
[2022-12-22 22:00] VITALS: BP 122/46
[2022-12-23] MEDS: HYDROcodone-ACET 5/325MG TAB PO PRN ×2 (01:03→23:36)
[2022-12-23 05:00] VITALS: BP 132/55
[2022-12-23] MEDS: SODIUM CHLOR 0.9% PF (SALINE LOCK) 10ML VIAL/SYR IV SCH ×3 (06:00→21:30)
[2022-12-23] MEDS: FUROSEMIDE 20 MG TAB PO SCH ×2 (06:01→18:25)
[2022-12-23 08:10] VITALS: BP 142/61
[2022-12-23] MEDS: Ensure HIGH Protein Chocolate 8oz Bottle PO SCH ×3 (08:24→18:25)
[2022-12-23] MEDS: ATENOLOL 25 MG TAB PO SCH (08:25)
[2022-12-23] MEDS: APIXABAN 2.5 MG TAB PO SCH ×2 (10:23→21:30)
[2022-12-23 12:00] VITALS: BP 119/53
[2022-12-23 16:00] VITALS: BP 136/70
[2022-12-23 20:00] VITALS: BP 119/64
[2022-12-23 22:00] VITALS: BP 135/47
[2022-12-24 05:00] VITALS: BP 144/48
[2022-12-24] MEDS: FUROSEMIDE 20 MG TAB PO SCH ×2 (05:29→18:00)
[2022-12-24] MEDS: SODIUM CHLOR 0.9% PF (SALINE LOCK) 10ML VIAL/SYR IV SCH ×3 (05:29→21:55)
[2022-12-24 08:00] VITALS: BP 127/49
[2022-12-24] MEDS: Ensure HIGH Protein Chocolate 8oz Bottle PO SCH ×3 (08:21→19:45)
[2022-12-24] MEDS: ATENOLOL 25 MG TAB PO SCH (08:24)
[2022-12-24 09:00] VITALS: BP 127/49
[2022-12-24] MEDS: APIXABAN 2.5 MG TAB PO SCH ×2 (10:18→21:52)
[2022-12-24 13:00] VITALS: BP 145/65
[2022-12-24] MEDS: HYDROcodone-ACET 5/325MG TAB PO PRN ×2 (13:07→21:52)
[2022-12-24 17:00] VITALS: BP 139/68
[2022-12-24 22:00] VITALS: BP 132/67
[2022-12-25 05:00] VITALS: BP 136/65
[2022-12-25] MEDS: SODIUM CHLOR 0.9% PF (SALINE LOCK) 10ML VIAL/SYR IV SCH (06:00)
[2022-12-25] MEDS: FUROSEMIDE 20 MG TAB PO SCH (06:08)
== END 2022-12-25 08:15 | DRG 299 ==
LOC: EDBD 01:44 → ER 01:44 → TELE 05:47 → TELE-EAST 12-15 03:17
PROVIDERS: ADMIT Nurse Practitioner Family; ATTEND Hospitalist
DX: I82.431 Acute embolism and thrombosis of right popliteal vein (principal); I26.99 Other pulmonary embolism without acute cor pulmonale; N17.0 Acute kidney failure with tubular necrosis; E87.0 Hyperosmolality and hypernatremia; I13.0 Hypertensive heart and chronic kidney disease with heart failure and stage 1 through stage 4 chronic kidney disease, or unspecified chronic kidney disease; Z20.822 Contact with and (suspected) exposure to COVID-19; I50.9 Heart failure, unspecified; E87.5 Hyperkalemia; N18.32 Chronic kidney disease, stage 3b; Z88.8 Allergy status to other drugs, medicaments and biological substances; Z79.01 Long term (current) use of anticoagulants; Z79.899 Other long term (current) drug therapy; Z82.49 Family history of ischemic heart disease and other diseases of the circulatory system; Z83.3 Family history of diabetes mellitus; Z87.440 Personal history of urinary (tract) infections; Z91.81 History of falling; Z87.891 Personal history of nicotine dependence; G62.9 Polyneuropathy, unspecified; M79.89 Other specified soft tissue disorders
CPT/HCPCS: 36415; 70496; 71045; 76775; 78582; 80048; 80053; 81001; 82306; 82570; 83880; 84100; 84156; 84300; 84443; 84484; 84550; 85025; 85379; 85610; 85730; 87081; 87426; 93005; 93306; 93970; 96374; 97110; 97116; 97163; 97530; G0378; J2405

== ENCOUNTER 2023-01-22 15:32 | Inpatient (IN) | payer OTHER ==
[~2023-01-22] VITALS: Ht 162.6 cm; Wt 91.8 kg
[~2023-01-22 15:32] MED LIST changes: +APIX2.5T PO; -ATEN50TA PO; -B-COTAB19 PO; -CIPR-173 PO; -FLUT1SPR5; -FURO20TA3 PO; -LOSA50TA46 PO; -MISCTAB85 PO; -NOR10T PO; -OMEG120017 PO; -TOBR0.3S EACHEYE
[2023-01-22 16:14] VITALS: PULSE 115; RESP 18; O2SAT 91
[2023-01-22] MEDS ORDERED: VANCOMYCIN 1GM/250ML 250 ML IV ONE ×2 (16:30→20:30)
[2023-01-22] MEDS ORDERED: SODIUM CHLORIDE 0.9% 1,000 ML IV ONE (16:30)
[2023-01-22] MEDS ORDERED: CEFEPIME 1GM/ 50ML 50 ML IV ONE (16:30)
[2023-01-22] MEDS ORDERED: ATEN-60 PO (16:51)
[2023-01-22] MEDS ORDERED: PREG75CA PO (16:51)
[2023-01-22 16:59] LABS: Basophils # (auto) 0.1 10 ^3/uL (0-0.2); Basophils % (auto) 0.7 % (0.0-2.0); Eosinophils # (auto) 0 10 ^3/uL (0-0.8); Eosinophils % (auto) 0.1 % (0.0-7.0); Hematocrit 36.6 % (36.0-46.0); Hemoglobin 11.8 g/dL (12.2-16.2); Lymphocytes # (auto) 1.2 10 ^3/uL (0.4-5.4); Lymphocytes % (auto) 8.9 % (10.0-50.0); Mean Corpuscular Hemoglobin 31.2 pg (28.0-32.0); Mean Corpuscular Hgb Conc. 32.1 g/dL (32.0-36.0); Mean Corpuscular Volume 97.2 fL (80.0-100.0); Monocytes # (auto) 1.3 10 ^3/uL (0-1.3); Monocytes % (auto) 9.7 % (0.0-12.0); Neutrophils # (auto) 10.8 10 ^3/uL (1.6-8.6); Neutrophils % (auto) 80.6 % (37.0-80.0); Red Blood Cells 3.77 10^6/uL (4.0-5.20); Red Cell Distribution Width 13.9 % (11.8-14.3); White Blood Cell 13.4 10^3/uL (4.4-10.8)
[2023-01-22 17:01] LABS: Urine Bacteria FEW /hpf (None Seen); Urine Blood Negative /uL (Negative); Urine Hyaline Cast FEW /lpf (0 - 2); Urine Mucus FEW (None Seen); Urine Specific Gravity 1.017 (1.001-1.035); Urine WBC <1 /hpf (0 - 5)
[2023-01-22 17:19] LABS: Albumin 2.6 g/dL (3.4-5.0); Calcium 9.3 mg/dL (8.5-10.1); Potassium 3.7 mmol/L (3.5-5.1)
[2023-01-22 17:22] LABS: BUN/Creatinine Ratio 34.8 (10.0-20.0); Bilirubin, Total 0.9 mg/dL (0.2-1.0); Total Protein 6.3 g/dL (6.4-8.2)
[2023-01-22] MEDS ORDERED: LACTATED RINGER'S 1,000 ML IV ONE (19:00)
[2023-01-22 19:40] VITALS: PULSE 88; RESP 16; O2SAT 96
[2023-01-22] MEDS ORDERED: NITROGLYCERIN 0.4 MG SL TAB SL PRN (20:00)
[2023-01-22] MEDS ORDERED: MORPHINE SULFATE INJ 2 MG/ml SYRG IV PRN (20:00)
[2023-01-22] MEDS ORDERED: VANCOMYCIN PER PHARMACY 0 MG IV SCH (20:00)
[2023-01-22] MEDS ORDERED: DEXTROSE (50%) 50ML SYRG IV PRN (20:00)
[2023-01-22] MEDS ORDERED: ACETAMINOPHEN 325 MG TAB PO PRN (20:00)
[2023-01-22] MEDS ORDERED: HYDROmorphone HCL 2 MG/ML VL/or syr IV PRN (20:00)
[2023-01-22] MEDS: D5W 5% 1,000 ML IV SCH (20:27)
[2023-01-22 21:27] LABS: Free T3 3.37 pg/mL (2.3-4.2); Free T4 (Free Thyroxine) 1.47 ng/dL (0.89-1.76)
[2023-01-22] MEDS: ACCU-CHEK COMFORT CURVE STRIP VI SCH (21:40)
[2023-01-22] MEDS: InsuLIN REG 1unit/0.01ml Soln (100units/ml) SC SCH (21:41)
[2023-01-22] MEDS: GABAPENTIN 100 MG CAP PO SCH ×2 (21:43→22:00)
[2023-01-22] MEDS: APIXABAN 2.5 MG TAB PO SCH (21:44)
[2023-01-23 02:38] LABS: BUN/Creatinine Ratio 38.2 (10.0-20.0); Potassium 3.4 mmol/L (3.5-5.1)
[2023-01-23] MEDS: D5W 5% 1,000 ML IV SCH ×5 (03:10→19:30)
[2023-01-23 05:28] LABS: Basophils # (auto) 0 10 ^3/uL (0-0.2); Basophils % (auto) 0.3 % (0.0-2.0); Eosinophils # (auto) 0.1 10 ^3/uL (0-0.8); Eosinophils % (auto) 0.7 % (0.0-7.0); Hematocrit 30.6 % (36.0-46.0); Hemoglobin 10.2 g/dL (12.2-16.2); Lymphocytes # (auto) 1.6 10 ^3/uL (0.4-5.4); Lymphocytes % (auto) 14.6 % (10.0-50.0); Mean Corpuscular Hemoglobin 32.1 pg (28.0-32.0); Mean Corpuscular Hgb Conc. 33.2 g/dL (32.0-36.0); Mean Corpuscular Volume 96.9 fL (80.0-100.0); Monocytes # (auto) 1.2 10 ^3/uL (0-1.3); Monocytes % (auto) 10.8 % (0.0-12.0); Neutrophils # (auto) 8.2 10 ^3/uL (1.6-8.6); Neutrophils % (auto) 73.6 % (37.0-80.0); Nucleated Red Blood Cells % 0.1 %; Red Blood Cells 3.16 10^6/uL (4.0-5.20); Red Cell Distribution Width 13.9 % (11.8-14.3); White Blood Cell 11.1 10^3/uL (4.4-10.8)
[2023-01-23 05:34] LABS: Calcium 8.6 mg/dL (8.5-10.1); Potassium 3.4 mmol/L (3.5-5.1)
[2023-01-23 05:40] LABS: Albumin 2.2 g/dL (3.4-5.0); BUN/Creatinine Ratio 40.4 (10.0-20.0); Bilirubin, Total 0.8 mg/dL (0.2-1.0); Total Protein 5.4 g/dL (6.4-8.2)
[2023-01-23] MEDS: GABAPENTIN 100 MG CAP PO SCH ×3 (06:00→22:00)
[2023-01-23] MEDS: InsuLIN REG 1unit/0.01ml Soln (100units/ml) SC SCH ×4 (06:43→22:00)
[2023-01-23] MEDS: ACCU-CHEK COMFORT CURVE STRIP VI SCH ×4 (06:43→22:00)
[2023-01-23 08:18] VITALS: PULSE 81; RESP 18; O2SAT 100
[2023-01-23] MEDS ORDERED: CEFEPIME 1GM/ 50ML 50 ML IV SCH (10:00)
[2023-01-23] MEDS ORDERED: PANTOPRAZOLE 40 MG/10 ML VIAL INJ IV SCH (10:00)
[2023-01-23] MEDS ORDERED: ATENOLOL 25 MG TAB PO SCH (10:00)
[2023-01-23] MEDS: POTASSIUM CHL 10 Meq TABLET PO SCH (10:11)
[2023-01-23] MEDS: ATORVASTATIN 20 MG TAB PO SCH (10:13)
[2023-01-23] MEDS: APIXABAN 2.5 MG TAB PO SCH ×2 (10:17→22:29)
[2023-01-23 16:46] VITALS: BP 115/50; PULSE 64; RESP 19; TEMP 98.1; O2SAT 94
[2023-01-23 18:36] VITALS: PULSE 89; RESP 18; O2SAT 94
[2023-01-23] MEDS ORDERED: LOSA50TA46 PO (19:25)
[2023-01-23] MEDS ORDERED: ANAS1TAB7 PO (19:25)
[2023-01-23] MEDS ORDERED: PREG-109 PO (19:25)
[2023-01-23] MEDS ORDERED: ATOR20TA50 PO (19:25)
[2023-01-23] MEDS ORDERED: POTA-228 PO (19:25)
[2023-01-23] MEDS ORDERED: ATEN50TA PO (19:25)
[2023-01-23] MEDS ORDERED: FUR20T PO (19:25)
[2023-01-23] MEDS ORDERED: POTASSIUM CHL 20MEQ/100ML 100 ML IV ONE (19:30)
[2023-01-23 20:00] VITALS: PULSE 65; RESP 17
[2023-01-23 22:00] VITALS: BP 120/53; PULSE 66; RESP 18; TEMP 98.2; O2SAT 92
[2023-01-23] MEDS: NYSTATIN TOPICAL POWDER 15GM TOP SCH (22:29)
[2023-01-23] MEDS: CEFEPIME 1GM/ 50ML 50 ML IV SCH (22:29)
[2023-01-24] VITALS (8 sets, daily range): BP systolic 136–154; BP diastolic 54–64; PULSE 64–77; RESP 18–22; TEMP 97.8–98.6; O2SAT 93–97
[2023-01-24] MEDS: D5W 5% 1,000 ML IV SCH ×3 (03:30→21:34)
[2023-01-24] MEDS: GABAPENTIN 100 MG CAP PO SCH ×3 (06:00→21:37)
[2023-01-24 06:05] LABS: Basophils # (auto) 0.1 10 ^3/uL (0-0.2); Basophils % (auto) 0.5 % (0.0-2.0); Eosinophils # (auto) 0.4 10 ^3/uL (0-0.8); Eosinophils % (auto) 4.1 % (0.0-7.0); Hematocrit 27.7 % (36.0-46.0); Hemoglobin 9.1 g/dL (12.2-16.2); Lymphocytes # (auto) 1.7 10 ^3/uL (0.4-5.4); Mean Corpuscular Hemoglobin 32.1 pg (28.0-32.0); Mean Corpuscular Volume 97.1 fL (80.0-100.0); Monocytes % (auto) 10.2 % (0.0-12.0); Neutrophils # (auto) 6.3 10 ^3/uL (1.6-8.6); Neutrophils % (auto) 67.2 % (37.0-80.0); Nucleated Red Blood Cells % 0.1 %; Red Blood Cells 2.85 10^6/uL (4.0-5.20); Red Cell Distribution Width 13.4 % (11.8-14.3); White Blood Cell 9.4 10^3/uL (4.4-10.8)
[2023-01-24 06:25] LABS: BUN/Creatinine Ratio 35.2 (10.0-20.0); Calcium 7.8 mg/dL (8.5-10.1); Potassium 3.5 mmol/L (3.5-5.1)
[2023-01-24] MEDS: InsuLIN REG 1unit/0.01ml Soln (100units/ml) SC SCH ×4 (06:35→21:34)
[2023-01-24] MEDS: ACCU-CHEK COMFORT CURVE STRIP VI SCH ×4 (06:35→21:43)
[2023-01-24] MEDS: POTASSIUM CHL 10 Meq TABLET PO SCH (10:49)
[2023-01-24] MEDS: ATORVASTATIN 20 MG TAB PO SCH (10:49)
[2023-01-24] MEDS: APIXABAN 2.5 MG TAB PO SCH ×2 (10:49→21:34)
[2023-01-24] MEDS: PANTOPRAZOLE 40 MG TAB PO SCH (10:49)
[2023-01-24] MEDS: CEFEPIME 1GM/ 50ML 50 ML IV SCH ×2 (10:50→21:34)
[2023-01-24] MEDS: ATENOLOL 25 MG TAB PO SCH (10:50)
[2023-01-24] MEDS: NYSTATIN TOPICAL POWDER 15GM TOP SCH ×2 (10:50→21:43)
[2023-01-24] MEDS: HYDROcodone-ACET 5/325MG TAB PO PRN ×2 (10:51→21:43)
[2023-01-25 05:18] VITALS: BP 140/59; PULSE 57; RESP 20; TEMP 97.5; O2SAT 96
[2023-01-25 05:23] LABS: Basophils # (auto) 0 10 ^3/uL (0-0.2); Basophils % (auto) 0.4 % (0.0-2.0); Eosinophils # (auto) 0.6 10 ^3/uL (0-0.8); Eosinophils % (auto) 6.1 % (0.0-7.0); Hematocrit 29.5 % (36.0-46.0); Hemoglobin 9.8 g/dL (12.2-16.2); Lymphocytes # (auto) 1.9 10 ^3/uL (0.4-5.4); Lymphocytes % (auto) 20.9 % (10.0-50.0); Mean Corpuscular Hemoglobin 32.3 pg (28.0-32.0); Mean Corpuscular Hgb Conc. 33.4 g/dL (32.0-36.0); Mean Corpuscular Volume 96.7 fL (80.0-100.0); Monocytes # (auto) 0.8 10 ^3/uL (0-1.3); Monocytes % (auto) 9.3 % (0.0-12.0); Neutrophils # (auto) 5.7 10 ^3/uL (1.6-8.6); Neutrophils % (auto) 63.3 % (37.0-80.0); Red Blood Cells 3.05 10^6/uL (4.0-5.20); Red Cell Distribution Width 13.1 % (11.8-14.3); White Blood Cell 9.1 10^3/uL (4.4-10.8)
[2023-01-25 05:39] LABS: Calcium 8.5 mg/dL (8.5-10.1); Potassium 3.4 mmol/L (3.5-5.1)
[2023-01-25 05:43] LABS: BUN/Creatinine Ratio 32.9 (10.0-20.0)
[2023-01-25] MEDS: GABAPENTIN 100 MG CAP PO SCH ×2 (06:00→14:00)
[2023-01-25] MEDS: D5W 5% 1,000 ML IV SCH ×2 (06:21→11:30)
[2023-01-25 06:51] VITALS: BP 140/59; PULSE 68; RESP 18; TEMP 97.5; O2SAT 96
[2023-01-25] MEDS: InsuLIN REG 1unit/0.01ml Soln (100units/ml) SC SCH ×2 (07:00→11:30)
[2023-01-25] MEDS: ACCU-CHEK COMFORT CURVE STRIP VI SCH ×2 (07:18→11:34)
[2023-01-25 08:00] VITALS: BP_SYST 140; BP_SYST 149; BP_DIAS 59; BP_DIAS 74; PULSE 62; PULSE 63; PULSE 71; RESP 18; TEMP 97.5; TEMP 98.2; O2SAT 96
[2023-01-25] MEDS: CEFEPIME 1GM/ 50ML 50 ML IV SCH (08:36)
[2023-01-25] MEDS: ATORVASTATIN 20 MG TAB PO SCH (10:09)
[2023-01-25] MEDS: APIXABAN 2.5 MG TAB PO SCH (10:09)
[2023-01-25] MEDS: PANTOPRAZOLE 40 MG TAB PO SCH (10:09)
[2023-01-25] MEDS: POTASSIUM CHL 10 Meq TABLET PO SCH (10:10)
[2023-01-25] MEDS: ATENOLOL 25 MG TAB PO SCH (10:11)
[2023-01-25] MEDS: NYSTATIN TOPICAL POWDER 15GM TOP SCH (10:11)
[2023-01-25] MEDS ORDERED: POTASSIUM CHL 20 Meq TABLET PO ONE (11:15)
[2023-01-25 12:00] VITALS: BP_SYST 123; BP_SYST 143; BP_DIAS 57; BP_DIAS 75; PULSE 69; PULSE 80; RESP 16; RESP 18; TEMP 98; TEMP 98.5; O2SAT 95; O2SAT 96
== END 2023-01-25 15:20 | DRG 280 ==
LOC: ER 15:32 → EDBD 15:32 → TELE 20:00 → TELE-CENTR 01-23 15:36
PROVIDERS: ADMIT Internal Medicine; ATTEND Internal Medicine
DX: I21.4 Non-ST elevation (NSTEMI) myocardial infarction (principal); E43 Unspecified severe protein-calorie malnutrition; G93.41 Metabolic encephalopathy; N17.0 Acute kidney failure with tubular necrosis; E87.0 Hyperosmolality and hypernatremia; N39.0 Urinary tract infection, site not specified; E05.90 Thyrotoxicosis, unspecified without thyrotoxic crisis or storm; E86.0 Dehydration; L98.493 Non-pressure chronic ulcer of skin of other sites with necrosis of muscle; D72.829 Elevated white blood cell count, unspecified; L89.219 Pressure ulcer of right hip, unspecified stage; E66.9 Obesity, unspecified; E87.6 Hypokalemia; I12.9 Hypertensive chronic kidney disease with stage 1 through stage 4 chronic kidney disease, or unspecified chronic kidney disease; I27.20 Pulmonary hypertension, unspecified; N18.32 Chronic kidney disease, stage 3b; I45.10 Unspecified right bundle-branch block; R32 Unspecified urinary incontinence; Z88.8 Allergy status to other drugs, medicaments and biological substances; Z85.3 Personal history of malignant neoplasm of breast; Z83.3 Family history of diabetes mellitus; Z82.49 Family history of ischemic heart disease and other diseases of the circulatory system; Z80.9 Family history of malignant neoplasm, unspecified; Z68.39 Body mass index [BMI] 39.0-39.9, adult; Z99.3 Dependence on wheelchair
CPT/HCPCS: 36415; 70450; 71045; 80048; 80053; 80202; 81001; 82140; 82306; 82550; 82962; 83605; 83880; 83970; 84100; 84439; 84443; 84481; 84484; 85025; 87040; 87077; 87186; 87205; 93005; 97110; 97116; 97163; 97530; C9113; G0378; J3480

== ENCOUNTER 2023-03-05 18:01 | Inpatient (IN) | payer OTHER ==
[~2023-03-05] VITALS: Ht 167.6 cm; Wt 97.5 kg
[~2023-03-05 18:01] MED LIST changes: +ANAS1TAB7 PO; +ATEN-60 PO; +ATEN50TA PO; +ATOR20TA50 PO; +FUR20T PO; +LOSA50TA46 PO; +POTA-228 PO; +PREG-109 PO; +PREG75CA PO
[2023-03-05] MEDS ORDERED: SODIUM CHLORIDE 0.9% 1,000 ML IV ONE (18:45)
[2023-03-05] MEDS ORDERED: cefTRIAXone 1GM/50ML D5W 50 ML IV ONE (18:45)
[2023-03-05 19:02] LABS: Basophils # (auto) 0.1 10 ^3/uL (0-0.2); Basophils % (auto) 0.6 % (0.0-2.0); Eosinophils # (auto) 0 10 ^3/uL (0-0.8); Eosinophils % (auto) 0.2 % (0.0-7.0); Hematocrit 30.9 % (36.0-46.0); Hemoglobin 10.1 g/dL (12.2-16.2); Lymphocytes # (auto) 1.3 10 ^3/uL (0.4-5.4); Mean Corpuscular Hemoglobin 30.8 pg (28.0-32.0); Mean Corpuscular Hgb Conc. 32.7 g/dL (32.0-36.0); Mean Corpuscular Volume 94.2 fL (80.0-100.0); Monocytes # (auto) 0.8 10 ^3/uL (0-1.3); Monocytes % (auto) 6.8 % (0.0-12.0); Neutrophils # (auto) 9.4 10 ^3/uL (1.6-8.6); Neutrophils % (auto) 81.4 % (37.0-80.0); Red Blood Cells 3.28 10^6/uL (4.0-5.20); Red Cell Distribution Width 14.7 % (11.8-14.3); White Blood Cell 11.5 10^3/uL (4.4-10.8)
[2023-03-05 19:14] LABS: Alanine Aminotransferase 16 U/L (7-40); Albumin 3.9 g/dL (3.2-4.8); Alkaline Phosphatase 79 U/L (46-116); Anion Gap 10.2 (5-15); Aspartate Aminotransferase 14 U/L (13-40); BUN/Creatinine Ratio 28.7 (10.0-20.0); Blood Urea Nitrogen 49 mg/dL (9-23); Calcium 9.6 mg/dL (8.5-10.1); Carbon Dioxide 23.8 mmol/L (20-30); Chloride 113 mmol/L (98-107); Glucose 129 mg/dL (74-106); Magnesium 1.8 mg/dL (1.6-2.6); Potassium 4.1 mmol/L (3.5-5.1); Sodium 147 mmol/L (136-145)
[2023-03-05 19:15] LABS: Bilirubin, Total 0.6 mg/dL (0.2-1.0); Total Protein 6.8 g/dL (5.7-8.2)
[2023-03-05] MEDS ORDERED: FUROSEMIDE 40 MG/4 ML VIAL IV ONE (20:45)
[2023-03-05 23:06] LABS: Urine Bacteria MANY /hpf (None Seen); Urine Blood Negative /uL (Negative); Urine Clarity HAZY (Clear); Urine Color Colorless (Yellow); Urine Hyaline Cast MOD /lpf (0 - 2); Urine Protein, UAD 1+ (Negative); Urine Specific Gravity 1.014 (1.001-1.035); Urine Urobilinogen Normal (Negative); Urine WBC 377 /hpf (0 - 5); Urine WBC Clumps PRESENT /hpf (None Seen)
[2023-03-05 23:17] VITALS: PULSE 81; RESP 20; O2SAT 99
[2023-03-05] MEDS ORDERED: ALBUTEROL SULF 2.5 MG/0.5ML(0.5%) NEB SOLN NEB PRN (23:30)
[2023-03-05] MEDS ORDERED: IPRATROPIUM BROM 0.5 MG/2.5ML INH SOL NEB PRN (23:30)
[2023-03-05 23:48] VITALS: BP 162/61; PULSE 88; RESP 16; TEMP 98.4; O2SAT 95
[2023-03-06] VITALS (7 sets, daily range): BP systolic 102–130; BP diastolic 54–62; PULSE 57–66; RESP 16–18; TEMP 98.5–98.9; O2SAT 93–97
[2023-03-06] MEDS ORDERED: LOSARTAN POTASSIUM 50 MG TAB PO ONE (00:45)
[2023-03-06 02:45] LABS: COVID19 ANTIGEN SOFIA FIA NEGATIVE (NEGATIVE)
[2023-03-06] MEDS: GABAPENTIN 100 MG CAP PO SCH ×4 (06:00→21:30)
[2023-03-06 06:21] LABS: Alanine Aminotransferase 10 U/L (7-40); Albumin 3.4 g/dL (3.2-4.8); Alkaline Phosphatase 62 U/L (46-116); Anion Gap 8.7 (5-15); Aspartate Aminotransferase 13 U/L (13-40); BUN/Creatinine Ratio 25.5 (10.0-20.0); Blood Urea Nitrogen 41 mg/dL (9-23); Calcium 8.9 mg/dL (8.5-10.1); Carbon Dioxide 23.3 mmol/L (20-30); Chloride 115 mmol/L (98-107); Glucose 107 mg/dL (74-106); Potassium 3.7 mmol/L (3.5-5.1); Sodium 147 mmol/L (136-145)
[2023-03-06 06:22] LABS: Bilirubin, Total 0.5 mg/dL (0.2-1.0)
[2023-03-06 06:31] LABS: Basophils # (auto) 0.1 10 ^3/uL (0-0.2); Basophils % (auto) 0.6 % (0.0-2.0); Eosinophils # (auto) 0.1 10 ^3/uL (0-0.8); Eosinophils % (auto) 1.3 % (0.0-7.0); Hematocrit 26.4 % (36.0-46.0); Lymphocytes # (auto) 1.7 10 ^3/uL (0.4-5.4); Lymphocytes % (auto) 18.6 % (10.0-50.0); Mean Corpuscular Hemoglobin 31.6 pg (28.0-32.0); Mean Corpuscular Hgb Conc. 33.9 g/dL (32.0-36.0); Mean Corpuscular Volume 93.2 fL (80.0-100.0); Monocytes # (auto) 0.9 10 ^3/uL (0-1.3); Monocytes % (auto) 10.2 % (0.0-12.0); Neutrophils # (auto) 6.3 10 ^3/uL (1.6-8.6); Neutrophils % (auto) 69.3 % (37.0-80.0); Red Blood Cells 2.83 10^6/uL (4.0-5.20); Red Cell Distribution Width 14.5 % (11.8-14.3); White Blood Cell 9.1 10^3/uL (4.4-10.8)
[2023-03-06] MEDS: ANASTROZOLE 1 MG PO SCH (10:00)
[2023-03-06] MEDS ORDERED: LOSARTAN POTASSIUM 50 MG TAB PO SCH (10:00)
[2023-03-06] MEDS: ATORVASTATIN 20 MG TAB PO SCH (10:19)
[2023-03-06] MEDS: POTASSIUM CHL 10 Meq TABLET PO SCH (10:19)
[2023-03-06] MEDS: FUROSEMIDE 20 MG/2 ML VIAL IV SCH (10:19)
[2023-03-06] MEDS: APIXABAN 2.5 MG TAB PO SCH ×2 (10:19→21:30)
[2023-03-06] MEDS: MULTIPLE VITAMINS W/ MINERALS TAB PO SCH (10:20)
[2023-03-06] MEDS: ATENOLOL 50 MG TAB PO SCH (10:20)
[2023-03-06] MEDS: cefTRIAXone 1GM/50ML D5W 50 ML IV SCH (21:00)
[2023-03-06] MEDS: LOSARTAN POTASSIUM 50 MG TAB PO SCH (21:30)
[2023-03-07] VITALS (8 sets, daily range): BP systolic 121–141; BP diastolic 42–60; PULSE 56–69; RESP 16–19; TEMP 97.4–98.9; O2SAT 68–95
[2023-03-07] MEDS: GABAPENTIN 100 MG CAP PO SCH ×3 (05:59→21:48)
[2023-03-07] MEDS: ANASTROZOLE 1 MG PO SCH (09:40)
[2023-03-07] MEDS: APIXABAN 2.5 MG TAB PO SCH ×2 (09:43→21:46)
[2023-03-07] MEDS: MULTIPLE VITAMINS W/ MINERALS TAB PO SCH (09:43)
[2023-03-07] MEDS: FUROSEMIDE 20 MG/2 ML VIAL IV SCH (09:43)
[2023-03-07] MEDS: POTASSIUM CHL 10 Meq TABLET PO SCH (09:43)
[2023-03-07] MEDS: ATORVASTATIN 20 MG TAB PO SCH (09:44)
[2023-03-07] MEDS: ATENOLOL 50 MG TAB PO SCH (09:48)
[2023-03-07] MEDS: cefTRIAXone 1GM/50ML D5W 50 ML IV SCH (21:46)
[2023-03-07] MEDS: LOSARTAN POTASSIUM 50 MG TAB PO SCH (21:48)
[2023-03-07] MEDS: ACETAMINOPHEN 325 MG TAB PO PRN ×2 (22:35→22:37)
[2023-03-08] VITALS (9 sets, daily range): BP systolic 143–149; BP diastolic 49–62; PULSE 54–63; RESP 16–20; TEMP 97.8–98.8; O2SAT 93–96
[2023-03-08] MEDS: GABAPENTIN 100 MG CAP PO SCH (06:00)
[2023-03-08] MEDS ORDERED: HYDROcodone-ACET 10/325MG TAB PO PRN (08:45)
[2023-03-08] MEDS: APIXABAN 2.5 MG TAB PO SCH (09:28)
[2023-03-08] MEDS: POTASSIUM CHL 10 Meq TABLET PO SCH (09:28)
[2023-03-08] MEDS: MULTIPLE VITAMINS W/ MINERALS TAB PO SCH (09:28)
[2023-03-08] MEDS: ATORVASTATIN 20 MG TAB PO SCH (09:28)
[2023-03-08] MEDS: ATENOLOL 50 MG TAB PO SCH (09:29)
[2023-03-08] MEDS: ANASTROZOLE 1 MG PO SCH (09:32)
[2023-03-08 10:28] LABS: Basophils # (auto) 0.1 10 ^3/uL (0-0.2); Eosinophils # (auto) 0.2 10 ^3/uL (0-0.8); Eosinophils % (auto) 2.7 % (0.0-7.0); Hematocrit 28.3 % (36.0-46.0); Lymphocytes # (auto) 1.5 10 ^3/uL (0.4-5.4); Lymphocytes % (auto) 18.3 % (10.0-50.0); Mean Corpuscular Hemoglobin 30.1 pg (28.0-32.0); Mean Corpuscular Hgb Conc. 31.8 g/dL (32.0-36.0); Mean Corpuscular Volume 94.7 fL (80.0-100.0); Monocytes # (auto) 0.7 10 ^3/uL (0-1.3); Monocytes % (auto) 8.5 % (0.0-12.0); Neutrophils # (auto) 5.6 10 ^3/uL (1.6-8.6); Neutrophils % (auto) 69.5 % (37.0-80.0); Red Blood Cells 2.99 10^6/uL (4.0-5.20); Red Cell Distribution Width 14.7 % (11.8-14.3); White Blood Cell 8.1 10^3/uL (4.4-10.8)
[2023-03-08 10:33] LABS: Chloride 111 mmol/L (98-107); Potassium 4.1 mmol/L (3.5-5.1); Sodium 143 mmol/L (136-145)
[2023-03-08 10:34] LABS: Anion Gap 7.1 (5-15); Calcium 8.8 mg/dL (8.5-10.1); Carbon Dioxide 24.9 mmol/L (20-30)
[2023-03-08 10:39] LABS: BUN/Creatinine Ratio 20.8 (10.0-20.0); Blood Urea Nitrogen 27 mg/dL (9-23); Glucose 122 mg/dL (74-106)
[2023-03-08] MEDS ORDERED: PREGABALIN CAPSULE 75 MG CAP PO SCH (17:30)
== END 2023-03-08 18:12 | DRG 690 ==
LOC: ER 18:01 → EDBD 18:01 → OVERFLOW 23:27 → WEST WING 03-06 14:39
PROVIDERS: ADMIT Nurse Practitioner Family; ATTEND Hospitalist
DX: N39.0 Urinary tract infection, site not specified (principal); E87.0 Hyperosmolality and hypernatremia; I13.0 Hypertensive heart and chronic kidney disease with heart failure and stage 1 through stage 4 chronic kidney disease, or unspecified chronic kidney disease; N17.9 Acute kidney failure, unspecified; E66.9 Obesity, unspecified; I27.20 Pulmonary hypertension, unspecified; G62.89 Other specified polyneuropathies; Z60.2 Problems related to living alone; E78.5 Hyperlipidemia, unspecified; Z20.822 Contact with and (suspected) exposure to COVID-19; L89.95 Pressure ulcer of unspecified site, unstageable; N18.30 Chronic kidney disease, stage 3 unspecified; Z85.3 Personal history of malignant neoplasm of breast; Z88.8 Allergy status to other drugs, medicaments and biological substances; Z68.34 Body mass index [BMI] 34.0-34.9, adult
CPT/HCPCS: 36415; 71045; 80048; 80053; 81001; 83605; 83735; 83880; 84484; 85025; 87040; 87077; 87081; 87086; 87186; 87205; 87426; 93005; 97110; 97163; 97530; G0378; J0696

== ENCOUNTER 2023-03-27 16:20 | Inpatient (IN) | payer OTHER ==
[~2023-03-27] VITALS: Ht 160 cm; Wt 104.4 kg
[2023-03-27] MEDS ORDERED: CEFTRIAXONE SODIUM 2 GM in D5W 5% 100 ML IV ONE (17:00)
[2023-03-27] MEDS ORDERED: cefTRIAXone 1GM/50ML D5W 0 ML IV ONE (17:17)
[2023-03-27 17:27] LABS: Base Excess -8.8 mmol/L (-2.0-2.0)
[2023-03-27 17:30] VITALS: PULSE 60; RESP 21; O2SAT 97
[2023-03-27] MEDS ORDERED: FUROSEMIDE 40 MG/4 ML VIAL IV ONE (17:45)
[2023-03-27 18:02] LABS: Basophils # (auto) 0.1 10 ^3/uL (0-0.2); Basophils % (auto) 0.6 % (0.0-2.0); Eosinophils # (auto) 0 10 ^3/uL (0-0.8); Hematocrit 33.7 % (36.0-46.0); Hemoglobin 10.6 g/dL (12.2-16.2); Lymphocytes # (auto) 0.8 10 ^3/uL (0.4-5.4); Lymphocytes % (auto) 8.2 % (10.0-50.0); Mean Corpuscular Hemoglobin 30.8 pg (28.0-32.0); Mean Corpuscular Hgb Conc. 31.6 g/dL (32.0-36.0); Mean Corpuscular Volume 97.7 fL (80.0-100.0); Monocytes # (auto) 0.3 10 ^3/uL (0-1.3); Monocytes % (auto) 2.8 % (0.0-12.0); Neutrophils # (auto) 8.4 10 ^3/uL (1.6-8.6); Neutrophils % (auto) 88.4 % (37.0-80.0); Red Blood Cells 3.45 10^6/uL (4.0-5.20); Red Cell Distribution Width 16.1 % (11.8-14.3); White Blood Cell 9.5 10^3/uL (4.4-10.8)
[2023-03-27 18:10] LABS: Urine Bacteria NONE SEEN /hpf (None Seen); Urine Blood Negative /uL (Negative); Urine Clarity Clear (Clear); Urine Color Yellow (Yellow); Urine Hyaline Cast FEW /lpf (0 - 2); Urine Protein, UAD TRACE (Negative); Urine Specific Gravity 1.016 (1.001-1.035); Urine Urobilinogen Normal (Negative); Urine WBC 50 /hpf (0 - 5)
[2023-03-27 18:23] LABS: Alanine Aminotransferase 26 U/L (7-40); Albumin 4.3 g/dL (3.2-4.8); Alkaline Phosphatase 83 U/L (46-116); Anion Gap 13 (5-15); Aspartate Aminotransferase 40 U/L (13-40); BUN/Creatinine Ratio 36.3 (10.0-20.0); Calcium 10.4 mg/dL (8.7-10.4); Carbon Dioxide 18 mmol/L (20-30); Chloride 113 mmol/L (98-107); Creatine Kinase IFCC 541 U/L (34-145); Glucose 106 mg/dL (74-106); Lipase 44 U/L (12-53); Sodium 144 mmol/L (136-145)
[2023-03-27 18:24] LABS: Bilirubin, Total 0.7 mg/dL (0.2-1.0); Total Protein 7.2 g/dL (5.7-8.2)
[2023-03-27 18:46] LABS: Blood Urea Nitrogen 93 mg/dL (9-23); Potassium 5.6 mmol/L (3.5-5.1)
[2023-03-27 18:54] LABS: INR 1.05 (0.9-1.15)
[2023-03-27] MEDS ORDERED: SODIUM BICARBONATE 8.4 % INJ 50ML VIAL IV ONE (19:00)
[2023-03-27] MEDS ORDERED: DEXTROSE (50%) 50ML SYRG IV ONE (19:00)
[2023-03-27] MEDS ORDERED: SODIUM ZIRCONIUM CYCL 10 GM PAK PO ONE (19:00)
[2023-03-27] MEDS ORDERED: InsuLIN REG 1unit/0.01ml Soln (100units/ml) IV ONE (19:00)
[2023-03-27] MEDS ORDERED: ASPirin 300 MG RECTAL SUPP PR ONE (19:00)
[2023-03-27 19:25] VITALS: PULSE 61; RESP 99; O2SAT 99
[2023-03-27] MEDS ORDERED: SODIUM CHLORIDE 0.9% 1,000 ML IV SCH (21:45)
[2023-03-27] MEDS ORDERED: SODIUM CHLORIDE 0.9% 250 ML IV ONE (22:15)
[2023-03-27 22:42] LABS: Chloride 114 mmol/L (98-107); Potassium 4.8 mmol/L (3.5-5.1); Sodium 144 mmol/L (136-145)
[2023-03-27 22:43] LABS: Anion Gap 7 (5-15); Carbon Dioxide 23 mmol/L (20-30)
[2023-03-27 22:44] LABS: Calcium 9.8 mg/dL (8.7-10.4)
[2023-03-27 22:49] LABS: BUN/Creatinine Ratio 35.1 (10.0-20.0); Glucose 116 mg/dL (74-106)
[2023-03-27 22:59] LABS: Blood Urea Nitrogen 87 mg/dL (9-23)
[2023-03-27] MEDS: SODIUM CHLORIDE 0.9% 1,000 ML IV SCH (23:20)
[2023-03-28 07:35] VITALS: PULSE 57; RESP 12; O2SAT 100
[2023-03-28] MEDS ORDERED: SODIUM CHLORIDE 0.9% 1,000 ML IV ONE (08:30)
[2023-03-28] MEDS: SODIUM CHLORIDE 0.9% 1,000 ML IV SCH (08:30)
[2023-03-28 09:06] LABS: Chloride 120 mmol/L (98-107); Potassium 4.5 mmol/L (3.5-5.1)
[2023-03-28 09:07] LABS: Anion Gap 7 (5-15); Calcium 9.4 mg/dL (8.5-10.1); Carbon Dioxide 23 mmol/L (20-30)
[2023-03-28 09:11] LABS: Sodium 150 mmol/L (136-145)
[2023-03-28 09:12] LABS: BUN/Creatinine Ratio 37.1 (10.0-20.0); Glucose 96 mg/dL (74-106)
[2023-03-28 09:13] LABS: Blood Urea Nitrogen 73 mg/dL (9-23)
[2023-03-28] MEDS: PREGABALIN CAPSULE 75 MG CAP PO SCH (10:30)
[2023-03-28] MEDS: SOD CHL 0.45% 1,000 ML IV SCH (12:51)
[2023-03-28] MEDS: FREE WATER PO SCH ×2 (14:04→18:00)
[2023-03-28 19:40] LABS: Chloride 115 mmol/L (98-107); Potassium 4.6 mmol/L (3.5-5.1); Sodium 144 mmol/L (136-145)
[2023-03-28 19:41] LABS: Anion Gap 7 (5-15); Calcium 8.8 mg/dL (8.5-10.1); Carbon Dioxide 22 mmol/L (20-30)
[2023-03-28 19:46] LABS: BUN/Creatinine Ratio 36.8 (10.0-20.0); Blood Urea Nitrogen 67 mg/dL (9-23); Glucose 107 mg/dL (74-106)
[2023-03-28] MEDS: cefTRIAXone 1GM/50ML D5W 50 ML IV SCH (20:56)
[2023-03-28 22:00] VITALS: BP 110/47; PULSE 50; RESP 17; TEMP 98.3; O2SAT 98
[2023-03-28 23:00] VITALS: BP 110/47; PULSE 75; RESP 17; TEMP 98.3; O2SAT 98
[2023-03-29] VITALS (7 sets, daily range): BP systolic 104–129; BP diastolic 29–46; PULSE 49–67; RESP 16–20; TEMP 98–98.7; O2SAT 95–100
[2023-03-29] MEDS ORDERED: MECL1TAB31 PO (03:19)
[2023-03-29] MEDS ORDERED: HYDR-4072 PO (03:20)
[2023-03-29] MEDS ORDERED: NITR1SPR TL (03:23)
[2023-03-29] MEDS: SOD CHL 0.45% 1,000 ML IV SCH ×2 (03:32→16:08)
[2023-03-29 06:18] LABS: Chloride 115 mmol/L (98-107); Potassium 4.3 mmol/L (3.5-5.1); Sodium 144 mmol/L (136-145)
[2023-03-29 06:19] LABS: Anion Gap 7 (5-15); Calcium 8.7 mg/dL (8.5-10.1); Carbon Dioxide 22 mmol/L (20-30)
[2023-03-29 06:24] LABS: BUN/Creatinine Ratio 37.1 (10.0-20.0); Blood Urea Nitrogen 63 mg/dL (9-23); Glucose 99 mg/dL (74-106)
[2023-03-29 06:25] LABS: Creatine Kinase IFCC 462 U/L (34-145)
[2023-03-29] MEDS: PREGABALIN CAPSULE 75 MG CAP PO SCH (08:43)
[2023-03-29] MEDS: cefTRIAXone 1GM/50ML D5W 50 ML IV SCH (21:10)
[2023-03-30] VITALS (7 sets, daily range): BP systolic 119–157; BP diastolic 47–61; PULSE 51–92; RESP 16–19; TEMP 97.8–99; O2SAT 92–98
[2023-03-30 05:31] LABS: Anion Gap 6 (5-15); Carbon Dioxide 22 mmol/L (20-30); Chloride 115 mmol/L (98-107); Potassium 4.6 mmol/L (3.5-5.1); Sodium 143 mmol/L (136-145)
[2023-03-30 05:33] LABS: Calcium 8.6 mg/dL (8.7-10.4)
[2023-03-30 05:37] LABS: BUN/Creatinine Ratio 33.3 (10.0-20.0); Glucose 97 mg/dL (74-106)
[2023-03-30 05:55] LABS: Blood Urea Nitrogen 48 mg/dL (9-23)
[2023-03-30] MEDS: PREGABALIN CAPSULE 75 MG CAP PO SCH (08:17)
[2023-03-30] MEDS: cefTRIAXone 1GM/50ML D5W 50 ML IV SCH (21:16)
[2023-03-31] VITALS (7 sets, daily range): BP systolic 145–163; BP diastolic 52–78; PULSE 51–89; RESP 16–19; TEMP 98.2–98.8; O2SAT 92–95
[2023-03-31] MEDS ORDERED: ACETAMINOPHEN 325 MG TAB PO PRN (08:15)
[2023-03-31] MEDS: PREGABALIN CAPSULE 75 MG CAP PO SCH (08:32)
[2023-03-31] MEDS: HYDROcodone-ACET 5/325MG TAB PO PRN (12:59)
[2023-03-31] MEDS: cefTRIAXone 1GM/50ML D5W 50 ML IV SCH (20:55)
[2023-04-01 05:00] VITALS: BP 158/65; PULSE 71; RESP 18; TEMP 99.1; O2SAT 94
[2023-04-01 08:00] VITALS: PULSE 67; PULSE 78; RESP 18; O2SAT 93
[2023-04-01 09:45] VITALS: BP 168/73; PULSE 79; RESP 19; TEMP 98.5; O2SAT 93
[2023-04-01] MEDS: PREGABALIN CAPSULE 75 MG CAP PO SCH (10:18)
[2023-04-01] MEDS: HYDROcodone-ACET 5/325MG TAB PO PRN (10:23)
[2023-04-01 14:53] VITALS: BP 134/44; PULSE 85; RESP 19; TEMP 98.1; O2SAT 94
[2023-04-01 16:49] VITALS: BP 160/76; PULSE 87; RESP 18; TEMP 99.1; O2SAT 93
[2023-04-01 18:59] VITALS: BP 160/76; PULSE 87; RESP 18; TEMP 99.1; O2SAT 93
== END 2023-04-01 19:55 | DRG 640 ==
LOC: EDBD 16:20 → ER 16:20 → TELE 21:44 → TELE-EAST 03-28 18:34
PROVIDERS: ADMIT Internal Medicine; ATTEND Internal Medicine
DX: E87.5 Hyperkalemia (principal); G93.41 Metabolic encephalopathy; N17.0 Acute kidney failure with tubular necrosis; M62.82 Rhabdomyolysis; I13.0 Hypertensive heart and chronic kidney disease with heart failure and stage 1 through stage 4 chronic kidney disease, or unspecified chronic kidney disease; N39.0 Urinary tract infection, site not specified; I50.9 Heart failure, unspecified; R53.81 Other malaise; N18.30 Chronic kidney disease, stage 3 unspecified; E78.5 Hyperlipidemia, unspecified; I48.0 Paroxysmal atrial fibrillation; G62.9 Polyneuropathy, unspecified; J44.9 Chronic obstructive pulmonary disease, unspecified; Z82.49 Family history of ischemic heart disease and other diseases of the circulatory system; Z83.3 Family history of diabetes mellitus; Z85.3 Personal history of malignant neoplasm of breast; Z88.8 Allergy status to other drugs, medicaments and biological substances; Z87.440 Personal history of urinary (tract) infections
CPT/HCPCS: 36415; 36600; 70450; 71045; 80048; 80053; 81001; 82140; 82550; 82805; 82962; 83690; 83880; 84484; 85025; 85610; 87040; 87077; 87081; 87086; 87088; 87186; 93005; 97110; 97116; 97163; 97530; 99291; G0378; J0696; J1815; J7060

== ENCOUNTER 2023-05-16 10:42 | Emergency (ER) | payer OTHER ==
[~2023-05-16] VITALS: Ht 170.2 cm; Wt 90.9 kg
[~2023-05-16 10:42] MED LIST changes: +HYDR-4072 PO; +MECL1TAB31 PO; +NITR1SPR TL
[2023-05-16 11:26] LABS: Basophils # (auto) 0.1 10 ^3/uL (0-0.2); Basophils % (auto) 0.9 % (0.0-2.0); Eosinophils # (auto) 0.1 10 ^3/uL (0-0.8); Eosinophils % (auto) 0.6 % (0.0-7.0); Hematocrit 32.2 % (36.0-46.0); Hemoglobin 10.4 g/dL (12.2-16.2); Lymphocytes # (auto) 1.2 10 ^3/uL (0.4-5.4); Lymphocytes % (auto) 12.5 % (10.0-50.0); Mean Corpuscular Hemoglobin 28.4 pg (28.0-32.0); Mean Corpuscular Hgb Conc. 32.2 g/dL (32.0-36.0); Mean Corpuscular Volume 88.1 fL (80.0-100.0); Monocytes # (auto) 0.6 10 ^3/uL (0-1.3); Monocytes % (auto) 6.2 % (0.0-12.0); Neutrophils # (auto) 7.6 10 ^3/uL (1.6-8.6); Neutrophils % (auto) 79.8 % (37.0-80.0); Nucleated Red Blood Cells % 0.1 %; Red Blood Cells 3.65 10^6/uL (4.0-5.20); Red Cell Distribution Width 15.5 % (11.8-14.3); White Blood Cell 9.5 10^3/uL (4.4-10.8)
[2023-05-16 11:49] LABS: Alanine Aminotransferase 21 U/L (7-40); Alkaline Phosphatase 86 U/L (46-116); Anion Gap 10 (5-15); Aspartate Aminotransferase 20 U/L (13-40); BUN/Creatinine Ratio 31.3 (10.0-20.0); Blood Urea Nitrogen 50 mg/dL (9-23); Calcium 9.4 mg/dL (8.5-10.1); Carbon Dioxide 22 mmol/L (20-30); Chloride 114 mmol/L (98-107); Glucose 93 mg/dL (74-106); Potassium 4.5 mmol/L (3.5-5.1); Sodium 146 mmol/L (136-145)
[2023-05-16 11:50] LABS: Albumin 3.6 g/dL (3.2-4.8); Bilirubin, Total 0.9 mg/dL (0.2-1.0); Total Protein 6.5 g/dL (5.7-8.2)
[2023-05-16] MEDS ORDERED: HYDR-4902 PO (13:32)
[2023-05-16] MEDS ORDERED: SODIUM CHLORIDE 0.9% 1,000 ML IV ONE (13:45)
[2023-05-16] MEDS ORDERED: HYDROcodone-ACET 7.5/325MG TAB PO ONE (13:45)
[2023-05-16 20:00] VITALS: BP 135/72; PULSE 72; RESP 20; TEMP 98; O2SAT 96
== END 2023-05-16 20:17 | disposition home or self-care (01) ==
LOC: ER 10:42 → EDBD 10:42 → ER 20:12
DX: M25.562 Pain in left knee (principal); M79.10 Myalgia, unspecified site; M25.561 Pain in right knee; R07.89 Other chest pain; I13.0 Hypertensive heart and chronic kidney disease with heart failure and stage 1 through stage 4 chronic kidney disease, or unspecified chronic kidney disease; N18.9 Chronic kidney disease, unspecified; I50.9 Heart failure, unspecified; J44.9 Chronic obstructive pulmonary disease, unspecified; Z79.899 Other long term (current) drug therapy; Z88.8 Allergy status to other drugs, medicaments and biological substances; W18.39XA Other fall on same level, initial encounter; Y93.89 Activity, other specified; Y92.89 Other specified places as the place of occurrence of the external cause; Y99.8 Other external cause status
CPT/HCPCS: 36415; 71045; 72170; 73562; 80053; 84484; 85025; 93970

== ENCOUNTER 2023-05-24 21:22 | Observation (INO) | payer OTHER ==
[~2023-05-24] VITALS: Ht 167.6 cm; Wt 100.0 kg
[~2023-05-24 21:22] MED LIST changes: +HYDR-4902 PO
[2023-05-24 22:23] LABS: Basophils # (auto) 0.1 10 ^3/uL (0-0.2); Basophils % (auto) 0.6 % (0.0-2.0); Eosinophils # (auto) 0.1 10 ^3/uL (0-0.8); Eosinophils % (auto) 0.5 % (0.0-7.0); Hematocrit 34.7 % (36.0-46.0); Hemoglobin 10.8 g/dL (12.2-16.2); Lymphocytes # (auto) 1.1 10 ^3/uL (0.4-5.4); Lymphocytes % (auto) 8.2 % (10.0-50.0); Mean Corpuscular Hemoglobin 27.7 pg (28.0-32.0); Mean Corpuscular Hgb Conc. 31.2 g/dL (32.0-36.0); Mean Corpuscular Volume 88.9 fL (80.0-100.0); Monocytes # (auto) 1.1 10 ^3/uL (0-1.3); Monocytes % (auto) 8.4 % (0.0-12.0); Neutrophils # (auto) 10.9 10 ^3/uL (1.6-8.6); Neutrophils % (auto) 82.3 % (37.0-80.0); Nucleated Red Blood Cells % 0.1 %; Red Cell Distribution Width 15.9 % (11.8-14.3); White Blood Cell 13.2 10^3/uL (4.4-10.8)
[2023-05-24 22:34] LABS: Alanine Aminotransferase 35 U/L (7-40); Alkaline Phosphatase 78 U/L (46-116); Anion Gap 8 (5-15); Aspartate Aminotransferase 48 U/L (13-40); BUN/Creatinine Ratio 17.3 (10.0-20.0); Blood Urea Nitrogen 43 mg/dL (9-23); Calcium 9.5 mg/dL (8.7-10.4); Carbon Dioxide 21 mmol/L (20-30); Chloride 116 mmol/L (98-107); Glucose 104 mg/dL (74-106); Potassium 5.1 mmol/L (3.5-5.1); Sodium 145 mmol/L (136-145)
[2023-05-24 22:35] LABS: Bilirubin, Total 0.7 mg/dL (0.2-1.0); Total Protein 7.2 g/dL (5.7-8.2)
[2023-05-25 01:50] VITALS: PULSE 77; RESP 24; O2SAT 95
[2023-05-25 08:00] VITALS: PULSE 66; RESP 15; O2SAT 97
[2023-05-25] MEDS ORDERED: ONDANSETRON HCL 4 MG/2 ML VIAL IV PRN (09:15)
[2023-05-25] MEDS ORDERED: HYDROcodone-ACET 5/325MG TAB PO PRN (09:15)
[2023-05-25] MEDS ORDERED: ACETAMINOPHEN 325 MG TAB PO PRN (09:15)
[2023-05-25] MEDS ORDERED: SODIUM CHLORIDE 0.9% 500 ML IV ONE (09:15)
[2023-05-25] MEDS: APIXABAN 2.5 MG TAB PO SCH (12:40)
[2023-05-25] MEDS: PREGABALIN CAPSULE 75 MG CAP PO SCH (12:55)
[2023-05-25 14:01] LABS: Chloride 117 mmol/L (98-107); Potassium 4.5 mmol/L (3.5-5.1); Sodium 143 mmol/L (136-145)
[2023-05-25 14:02] LABS: Anion Gap 10 (5-15); Carbon Dioxide 16 mmol/L (20-30)
[2023-05-25 14:03] LABS: Calcium 8.7 mg/dL (8.7-10.4)
[2023-05-25 14:07] LABS: BUN/Creatinine Ratio 13.9 (10.0-20.0); Glucose 85 mg/dL (74-106)
[2023-05-25 14:11] LABS: Blood Urea Nitrogen 29 mg/dL (9-23)
[2023-05-25 15:09] LABS: Basophils # (auto) 0.1 10 ^3/uL (0-0.2); Basophils % (auto) 1.1 % (0.0-2.0); Eosinophils # (auto) 0.1 10 ^3/uL (0-0.8); Eosinophils % (auto) 0.6 % (0.0-7.0); Hematocrit 29.6 % (36.0-46.0); Hemoglobin 9.2 g/dL (12.2-16.2); Lymphocytes % (auto) 10.9 % (10.0-50.0); Mean Corpuscular Hemoglobin 27.7 pg (28.0-32.0); Mean Corpuscular Hgb Conc. 31.2 g/dL (32.0-36.0); Mean Corpuscular Volume 88.8 fL (80.0-100.0); Monocytes # (auto) 0.7 10 ^3/uL (0-1.3); Monocytes % (auto) 7.8 % (0.0-12.0); Neutrophils # (auto) 7.6 10 ^3/uL (1.6-8.6); Neutrophils % (auto) 79.6 % (37.0-80.0); Red Blood Cells 3.34 10^6/uL (4.0-5.20); Red Cell Distribution Width 16.2 % (11.8-14.3); White Blood Cell 9.5 10^3/uL (4.4-10.8)
[2023-05-25 20:00] VITALS: PULSE 49; RESP 15; O2SAT 98
[2023-05-26] MEDS: APIXABAN 2.5 MG TAB PO SCH ×2 (01:49→11:25)
[2023-05-26 09:39] VITALS: TEMP 98.6
[2023-05-26 09:56] VITALS: PULSE 70; O2SAT 96
[2023-05-26 09:57] VITALS: RESP 12; O2SAT 96
[2023-05-26] MEDS: PREGABALIN CAPSULE 75 MG CAP PO SCH (11:25)
[2023-05-26 13:52] VITALS: BP 96/41; RESP 14; O2SAT 100
[2023-05-26 16:00] VITALS: PULSE 48
== END 2023-05-26 18:23 | disposition still patient (30) ==
LOC: ER 21:22 → EDBD 21:22 → TELE 05-25 09:04
PROVIDERS: ADMIT Internal Medicine; ATTEND Internal Medicine
DX: I13.0 Hypertensive heart and chronic kidney disease with heart failure and stage 1 through stage 4 chronic kidney disease, or unspecified chronic kidney disease (principal); E11.22 Type 2 diabetes mellitus with diabetic chronic kidney disease; I50.9 Heart failure, unspecified; N18.30 Chronic kidney disease, stage 3 unspecified; N17.9 Acute kidney failure, unspecified; E11.42 Type 2 diabetes mellitus with diabetic polyneuropathy; I48.0 Paroxysmal atrial fibrillation; E78.5 Hyperlipidemia, unspecified; M79.89 Other specified soft tissue disorders; R62.7 Adult failure to thrive; J44.9 Chronic obstructive pulmonary disease, unspecified; Z91.148 Patient's other noncompliance with medication regimen for other reason; Z68.35 Body mass index [BMI] 35.0-35.9, adult; Z88.6 Allergy status to analgesic agent; Z88.5 Allergy status to narcotic agent; Z88.8 Allergy status to other drugs, medicaments and biological substances
CPT/HCPCS: 36415; 36556; 80048; 80053; 83880; 84484; 85025; 93005; 93970; 97110; 97116; 97163; 97530; 99285; G0378; J7040